=== PATIENT | female | born 1960 | race Caucasian/White ===

== ENCOUNTER 2016-03-30 12:17 | Emergency (ER) | payer MEDICAID ==
[2016-03-30 12:47] VITALS: BP 176/80
--- NOTE | 2016-03-30 13:36 | ERNOTE ---
Integumentary HPI - Narrative Date of Service: 03/30/16 - General Time Seen by Provider: 03/30/16 13:11 Source: patient Exam Limitations: no limitations - Immun/Allergies/Home Medications Immunizations: IMMUNIZATION HX Immunizations Up to Date Yes History of Influenza Vaccine Yes Hx Pneumococcal Vaccination No Allergies/Adverse Reactions: Allergies Allergy/AdvReac Type Severity Reaction Status Date / Time penicillin G Allergy Severe anaphlactic Verified 03/30/16 12:48 sulfacetamide Allergy Severe anaphylacti Verified 03/30/16 12:48 c Penicillins Allergy Verified 03/30/16 12:48 sulfamethoxazole Allergy Verified 03/30/16 12:48 [From Bactrim DS] trimethoprim Allergy Verified 03/30/16 12:48 [From Bactrim DS] chantrix Allergy Mild Itching Uncoded 03/23/16 13:42 Home Medications: HOME MEDICATIONS Cyanocobalamin (Vitamin B-12) [Vitamin B-12] 1,000 mcg IM DAILY 04/14/12 [Last Taken Unknown] Ferrous Sulfate [Iron] 325 mg PO BID 04/14/12 [Last Taken Unknown] Levothyroxine Sodium [Synthroid] 125 mcg PO DAILY 04/14/12 [Last Taken Unknown] Multivitamin [Multivitamins] 1 each PO DAILY 04/14/12 [Last Taken Unknown] Simvastatin 40 mg PO HS 04/14/12 [Last Taken Unknown] Furosemide [Lasix] 60 mg PO DAILY 11/28/12 [Last Taken Unknown] Acetaminophen [Tylenol Extra Strength] 500 mg PO PRN PRN 12/11/12 [Last Taken Unknown] Cholecalciferol (Vitamin D3) [Vitamin D-3] 1,000 unit PO BID 03/07/15 [Last Taken Unknown] Gabapentin 300 mg PO BID 03/07/15 [Last Taken Unknown] Ibuprofen [Motrin] 600 mg PO TID PRN #30 tab 03/07/15 [Last Taken Unknown] Spironolactone [Aldactone] 25 mg PO DAILY 03/07/15 [Last Taken Unknown] Gabapentin [Neurontin] 600 mg PO HS 11/05/15 [Last Taken Unknown] Meclizine HCl [Antivert] 25 mg PO TID PRN #20 tab 11/05/15 [Last Taken Unknown] Naproxen [Naprosyn] 500 mg PO BID PRN #60 tab 11/13/15 [Last Taken Unknown] Cephalexin Monohydrate [Keflex] 500 mg PO QID #40 cap 03/30/16 [Last Taken Unknown] - History of Present Illness Narrative: Pt. comes in with c/o R front leg redness and warmth that developed two days ago. Pt. also states taht her leg is swollen. Pt. has had a recent laceration to this leg that was treated with sutures. Pt. denies any drainage from the wound. Pt. denies any prehospital treatment, alleviating factors, or aggravating factors. Review of Systems - Review of Systems Constitutional: Present: no symptoms reported. Absent: recent illness, fever, chills, malaise EYE: Present: no symptoms reported ENT: Present: no symptoms reported Respiratory: Present: no symptoms reported. Absent: shortness of breath, cough , wheezing Cardiology: Present: no symptoms reported. Absent: chest pain, palpitations, edema Gastrointestinal/Abdominal: Present: no symptoms reported. Absent: nausea, vomiting, diarrhea Genitourinary: Present: no symptoms reported Musculoskeletal: Present: muscle pain - R jewell Skin: Present: other - laceration closed with sutures R jewell, warmtha dn redness 3 cm around this wound Neurological: Present: no symptoms reported. Absent: headache, dizziness/light- headedness, weakness, numbness, tingling All Other Systems: All systems neg except as marked - Patient's Past Medical History Patient History - Medical: Anxiety, Arthritis, Depression, Hypothyroidism, Obesity Patient History - Cardiac/Respiratory: Hypertension, Hyperlipidemia Patient History - Cancer: No Hx of Cancer Patient History - Surgical Procedures: Appendectomy, Cholecystectomy, Hysterectomy, Total Knee Replacement, T & A, Other LMP (females 10-50): Menopausal - Family History Mother Family History - Medical: Diabetes Type 2, Kidney stone Father Family History - Cardiac/Respiratory: Myocardial Infarction - Social History Living Situations: home Smoking Status: Current every day smoker Have you smoked in the past 12 months: Yes Do you dip or chew tobacco: No Alcohol Use: none Drug Use: none Physical Exam - Physical Exam General Appearance: Present: wd/wn, alert, no apparent distress Eye Exam: Normal inspection: bilateral, PERRL: bilateral, EOMI: bilateral Ears, Nose, Throat: Present: normal ENT inspection Neck: Present: normal inspection Respiratory: Present: no respiratory distress, normal breath sounds, no accessory muscle use, chest nontender, lungs clear Cardiovascular/Chest: Present: regular rate, rhythm, no murmur, normal peripheral pulses Back Exam: Present: normal inspection Extremity Exam: Present: normal range of motion, extremity edema - +2 surronding wound in R jewell, other - laceration closed with sutures R jewell, warmth and redness 3 cm around this wound. Absent: calf tenderness Neurological Exam: Present: alert, oriented, normal mood/affect, no motor/ sensory deficits, insurance account representative II-XII nml as tested, normal cerebellar test Skin Exam: Present: normal color, warm/dry, other - laceration closed with sutures R jewell, warmth and redness 3 cm around this wound. Absent: pallor, skin rash ED Progress - Results and Orders Patient's Lab Results:: I have reviewed the patient's lab results. - Vital Signs Patient's Vital Signs:: I have reviewed the patient's vital signs. Vital Signs: Vital Signs 03/30/16 12:42 Temperature 35.4 C L Pulse Rate 70 Respiratory 16 Rate Blood Pressure 176/80 O2 Sat by Pulse 100 Oximetry - Progress/Reassessment Chief Complaint: Cellulitis Progress:: Unchanged Departure Clinical Impression: Cellulitis Qualifiers: Site of cellulitis: extremity Site of cellulitis of extremity: lower extremity Laterality: right Qualified Code(s): L03.115 - Cellulitis of right lower limb - Departure Disposition: Home self-care Condition: Good Instructions: Cellulitis, Adult, [id number] Additional Instructions: Please return to Dr Rodriguez for wound check and suture removal in 5 days. Referrals: Shadi Moran MD [Primary Care Provider] - Prescriptions: Cephalexin Monohydrate [Keflex] 500 mg PO QID #40 cap
[2016-03-30 13:46] LABS: Hematocrit 41.8 % (37.0-47.0); Hemoglobin 13.2 gm/dL (12.5-16.0); Mean Cell Volume 85.8 fl (78-100); Mean Corpuscular Hemoglobin 27.1 pg (27-31); Mean Corpuscular Hgb Conc 31.6 g/dl (32-36); Mean Platelet Volume 9.3 fl (6.0-9.5); Neutrophil # 5.1 K/mm3 (1.3-6.0); Neutrophil % 68.7 % (42-75.0); Platelet Count 323 K/mm3 (150-450); Red Blood Count 4.87 M/mm3 (4.2-5.4); Red Cell Distribution Width 15.1 % (11.5-14.0); White Blood Count 7.5 K/mm3 (4.0-10.5)
[2016-03-30 14:04] LABS: Albumin * 3.4 gm/dl (3.4-5.0); Anion Gap 11.6 mmol/L (6.8-13.8); BUN/Creatinine Ratio 16.4 (9.0-21.6); Bilirubin, Total 0.4 mg/dL (0.0-1.1); Calcium * 8.8 mg/dL (7.9-10.9); Carbon Dioxide 28.5 mmol/L (24-32.6); Potassium 4.1 mmol/L (3.4-4.6); Total Protein 7.1 gm/dL (6.2-8.2)
== END 2016-03-30 14:58 | disposition home or self-care (01) ==
LOC: ER 12:17
DX: L03.115 Cellulitis of right lower limb (principal); F17.210 Nicotine dependence, cigarettes, uncomplicated; Z78.0 Asymptomatic menopausal state; Z90.710 Acquired absence of both cervix and uterus; Z96.659 Presence of unspecified artificial knee joint; Z90.49 Acquired absence of other specified parts of digestive tract; E03.9 Hypothyroidism, unspecified; I10 Essential (primary) hypertension

== ENCOUNTER 2016-04-13 09:14 | Emergency (ER) | payer MEDICAID ==
[2016-04-13 10:26] VITALS: BP 154/92
[2016-04-13 11:09] LABS: Hematocrit 42.1 % (37.0-47.0); Hemoglobin 13.5 gm/dL (12.5-16.0); Mean Cell Volume 84.7 fl (78-100); Mean Corpuscular Hemoglobin 27.2 pg (27-31); Mean Corpuscular Hgb Conc 32.1 g/dl (32-36); Mean Platelet Volume 9.2 fl (6.0-9.5); Neutrophil # 4.8 K/mm3 (1.3-6.0); Neutrophil % 64.7 % (42-75.0); Platelet Count 356 K/mm3 (150-450); Red Blood Count 4.97 M/mm3 (4.2-5.4); Red Cell Distribution Width 15.1 % (11.5-14.0); White Blood Count 7.4 K/mm3 (4.0-10.5)
[2016-04-13 11:25] LABS: Albumin * 3.3 gm/dl (3.4-5.0); Anion Gap 11.9 mmol/L (6.8-13.8); BUN/Creatinine Ratio 12.8 (9.0-21.6); Bilirubin, Total 0.3 mg/dL (0.0-1.1); Ca. Corrected For Albumin 9.3 mg/dL (8.4-10.2); Calcium * 9.1 mg/dL (7.9-10.9); Carbon Dioxide 27.8 mmol/L (24-32.6); Potassium 3.7 mmol/L (3.4-4.6); Total Protein 7.1 gm/dL (6.2-8.2)
--- NOTE | 2016-04-13 11:30 | ERNOTE ---
Medical Problem HPI - Narrative Date of Service: 04/13/16 - General Chief Complaint: Screening, Suture/Wound Time Seen by Provider: 04/13/16 10:39 Source: patient Exam Limitations: no limitations - Immun/Allergies/Home Medications Immunizations: IMMUNIZATION HX Immunizations Up to Date Yes History of Influenza Vaccine Yes Hx Pneumococcal Vaccination No Allergies/Adverse Reactions: Allergies penicillin G Allergy (Severe, Verified 03/30/16 12:48) anaphlactic sulfacetamide Allergy (Severe, Verified 03/30/16 12:48) anaphylactic Penicillins Allergy (Verified 03/30/16 12:48) sulfamethoxazole [From Bactrim DS] Allergy (Verified 03/30/16 12:48) trimethoprim [From Bactrim DS] Allergy (Verified 03/30/16 12:48) chantrix Allergy (Mild, Uncoded 03/23/16 13:42) Itching Home Medications: HOME MEDICATIONS Cyanocobalamin (Vitamin B-12) [Vitamin B-12] 1,000 mcg IM DAILY 04/14/12 [Last Taken 04/13/16 09:00] Ferrous Sulfate [Iron] 325 mg PO BID 04/14/12 [Last Taken 04/12/16 09:00] Levothyroxine Sodium [Synthroid] 125 mcg PO DAILY 04/14/12 [Last Taken 04/13/16 09:00] Multivitamin [Multivitamins] 1 each PO DAILY 04/14/12 [Last Taken 04/12/16 09:00 ] Simvastatin 40 mg PO HS 04/14/12 [Last Taken 04/12/16 21:00] Acetaminophen [Tylenol Extra Strength] 500 mg PO PRN PRN 12/11/12 [Last Taken 06:30] Cholecalciferol (Vitamin D3) [Vitamin D-3] 1,000 unit PO BID 03/07/15 [Last Taken 04/13/16 09:00] Gabapentin 300 mg PO DAILY 03/07/15 [Last Taken 04/13/16 09:00] Spironolactone [Aldactone] 25 mg PO DAILY 03/07/15 [Last Taken 04/13/16 08:00] Gabapentin [Neurontin] 600 mg PO HS 11/05/15 [Last Taken 04/12/16 21:00] Cephalexin Monohydrate [Keflex] 600 mg PO QID 04/13/16 [Last Taken 04/13/16 09: 00] Furosemide [Lasix] 100 mg PO DAILY 04/13/16 [Last Taken 04/12/16 09:00] Gabapentin 100 mg PO DAILY 04/13/16 [Last Taken 04/12/16 12:00] - History of Present History Narrative: Pt. comes in with c/o R leg pain and drainage. Pt. denies any SOB, CP, abd pain , but does state that she has weakness and nausea and diarrhea. Pt. has been on keflex and clindamycin since onset of previous cellulitis three weeks ago. Pt. was treated here by this provider, her PCP and the wound care clinic and pt. states that the drainage and wound has worsened. Review of Systems - Review of Systems Constitutional: Present: weakness, fatigue, malaise. Absent: fever, chills EYE: Present: no symptoms reported ENT: Present: no symptoms reported Respiratory: Present: no symptoms reported. Absent: shortness of breath, cough , wheezing Cardiology: Present: no symptoms reported Gastrointestinal/Abdominal: Present: no symptoms reported. Absent: nausea, vomiting, diarrhea, abdominal pain Genitourinary: Present: no symptoms reported Musculoskeletal: Present: no symptoms reported. Absent: back pain, joint pain Skin: Present: no symptoms reported Neurological: Present: no symptoms reported. Absent: headache, dizziness/light- headedness, numbness, tingling Endocrine: Present: no symptoms reported Hematologic/Lymphatic: Present: no symptoms reported Psych: Present: no symptoms reported All Other Systems: All systems neg except as marked - Patient's Past Medical History Patient History - Medical: Anxiety, Arthritis, Depression, Hypothyroidism, Obesity Patient History - Cardiac/Respiratory: Hypertension, Hyperlipidemia Patient History - Cancer: No Hx of Cancer Patient History - Surgical Procedures: Appendectomy, Cholecystectomy, Total Knee Replacement - Family History Mother Family History - Medical: Diabetes Type 2, Kidney stone Father Family History - Cardiac/Respiratory: Myocardial Infarction - Social History Living Situations: home Smoking Status: Current every day smoker Have you smoked in the past 12 months: Yes Do you dip or chew tobacco: No Smoking Start Date: 03/28/81 Alcohol Use: none Drug Use: none Physical Exam - Physical Exam General Appearance: Present: wd/wn, alert, no apparent distress Eye Exam: Normal inspection: bilateral, PERRL: bilateral, EOMI: bilateral Neck: Present: normal inspection, nontender. Absent: lymphadenopathy (R), lymphadenopathy (L) Respiratory: Present: no respiratory distress, normal breath sounds, no accessory muscle use, chest nontender, lungs clear Cardiovascular/Chest: Present: regular rate, rhythm, no murmur, normal peripheral pulses Gastrointestinal/Abdominal: Present: normal bowel sounds, nontender, nondistended, soft, no organomegaly Back Exam: Present: normal inspection, normal range of motion, no CVA tenderness , no vertebral tenderness Extremity Exam: Present: no edema, normal range of motion, other - ulcer mid jewell 3cm in diameter with 20 percent granulation tissue at base and green exudate from wound Neurological Exam: Present: alert, oriented, normal mood/affect, no motor/ sensory deficits, technician chemical cleaning II-XII nml as tested, normal cerebellar test Skin Exam: Present: normal color, warm/dry. Absent: pallor, skin rash ED Progress - Date and Time Seen: Date and Time: 04/13/16 11:29 Feel that pt. needs silver alginate dressing change and IV antibiotics for wound to heal 04/13/16 11:[address] Moran and we will have pt. go to [facility] for silver alginate dressing changes and follow up with [facility] as scheduled. - Vital Signs Patient's Vital Signs:: I have reviewed the patient's vital signs. Vital Signs: Vital Signs 04/13/16 10:12 Temperature 35.8 C L Pulse Rate 76 Respiratory 16 Rate Blood Pressure 154/92 O2 Sat by Pulse 100 Oximetry - Progress/Reassessment Chief Complaint: Screening, Suture/Wound Departure - Departure Clinical Impression: Ulcer Disposition: Home self-care Condition: Good Instructions: Wound Infection, [id number] Additional Instructions: Please follow up with Dr Moran in 1-2 weeks, Follow up with wound care clinic as scheduled and follow up in [facility] for daily dressing changes. Referrals: Shadi Moran MD [Primary Care Provider] -
== END 2016-04-13 12:27 | disposition home or self-care (01) ==
LOC: ER 09:14
DX: L97.819 Non-pressure chronic ulcer of other part of right lower leg with unspecified severity (principal); Z96.659 Presence of unspecified artificial knee joint; Z90.49 Acquired absence of other specified parts of digestive tract; I10 Essential (primary) hypertension; E03.9 Hypothyroidism, unspecified

== ENCOUNTER 2016-06-11 14:47 | Inpatient (IN) | payer MEDICAID ==
--- OUTSIDE RECORDS SUMMARY | 2016-06-11 14:55 | XMS REPORT | Continuity of Care Document ---
:1960 Author Organization [facility] ([facility]) Address [address] [place] [address] Phone [phone] Care Team Providers Name Role Phone Caitlin Castro Primary Care Provider [phone] Source Comments This disclosure is being made pursuant to the Care Everywhere program, applicable federal and state laws, and may not contain all informaitonavailable regarding this patient.[facility] ([facility]) Active Allergies and Adverse Reactions Allergen Noted Date Severity Reactions Comments Penicillins 07/01/2011 Angioedema Current Medications Prescription Sig. Disp. Refills Start Date End Date Status divalproex (DEPAKOTE) Take 250 mg by mouth 2 Active 250 mg EC tablet times daily. furosemide 40 mg Take 40 mg by mouth Active tablet daily. simvastatin 40 mg Take 40 mg by mouth Active tablet every evening. zolpiDEM 5 mg tablet Take by mouth at Active bedtime as needed. levothyroxine One daily 90 Tab 3 09/29/2012 Active (SYNTHROID) 125 mcg Indications: tablet HYPOTHYROIDISM ferrous sulfate 325 Take 325 mg by mouth Active mg (65 mg iron) daily. tablet Active Problems Problem Noted Date Right knee pain 02/13/2013 S/P total knee arthroplasty 02/13/2013 Abdominal pain, recurrent 09/29/2012 Overview: Right upper quadrant/lower chest. Point tenderness over the lower right lateral ribs Adrenal nodule 09/29/2012 Overview: Right 3.4 cm Hypothyroid 09/29/2012 Pedal edema 09/29/2012 Other physical therapy 07/02/2011 Difficulty in walking(719.7) 07/02/2011 Social History Tobacco Use Types Packs/Day Years Used Date Current Every Day Smoker Cigarettes 10 Tobacco Cessation:Ready to Quit: No; Counseling Given: Yes Comments: Last Filed Vital Signs Vital Sign Reading Time Taken Blood Pressure 149/84 01/08/2013 1:18 PM CDT Pulse 84 01/08/2013 1:18 PM CDT Temperature 36.6 C (97.9 F) 01/08/2013 1:18 PM CDT Respiratory Rate - - Height 1.626 m (5' 4") 01/08/2013 1:18 PM CDT Weight 89.359 kg (197 lb) 01/08/2013 1:18 PM CDT Body Mass Index 33.8 01/08/2013 1:18 PM CDT Oxygen Saturation - - Plan of Care Health Maintenance Due Date Last Done Comments HCV Screening 1960 Hepatitis B Vaccine (1 of 3 - Primary Series) 1960 Tdap Vaccine 1972 Lipid Disorder Screening 07/09/1979 MMR Vaccine 07/09/1979 Td Vaccine 07/09/1979 Pneumococcal Vaccine (1 of 1 - PPSV23) 1980 Cervical Cancer Screening 07/09/1991 Mammogram 2001 Colonoscopy 2011 Influenza Vaccine: Seasonal (#1) 10/27/2015 Results from Last 3 Months Not on file
--- NOTE | 2016-06-11 16:06 | HP ---
Chief Complaint - Chief Complaint Date of Service: 06/11/16 Time of Service: 15:57 Chief Complaint: Fever, chills and redness RT lower extremity for the last 24 hours. History of Present Illness: Patient is a 55-year-old WF with a H/O HLD, hypothyroidism, neuropathy, obesity [BMI 38.9], bilateral lower extremity edema who came in to the office because of redness RT lower extremity, fever and chills for the last 24 hours. She has a wound on the anterior aspect of her right lower leg for the last 2-3 months which has not completely healed in spite of being on 2 to 3 oral antibiotics in the past. She has also seen the wound clinic. She was admitted for further workup and IV antibiotics. - Patient's Past Medical History Additional info: PAST MEDICAL HISTORY: Hyperlipidemia, hypothyroidism 2004, neuropathy, obesity BMI 38.0, osteoarthritis[right TKA 2011], bilateral lower extremity edema, tobacco abuse, anxiety and depression, chronic low back pain, diverticulosis. Echo: 01/2016: Mild concentric LVH w/ EF 55-60 percent%. Mild to moderate MR. Trace TR with RVSP 36 mmHg. Abdominal ultrasound: 06/11: No evidence of portal vein thrombosis. Sleep studies: Patient did not show up for them. Patient History - Cancer: No Hx of Cancer Additional Info: PAST SURGICAL HISTORY: Appendectomy 1977, tubal ligation 1984, thyroidectomy 1994, lap. Cholecystectomy 1997, RT arthroscopic surgery [tibial tuberoplasty-2008, medial meniscectomy 2011]; TVH 2005, sympathetic nerve blocks to right lumbar plexus 2009, RT TKA 2011, RT de Quervian's surgery 2012. Patient History - Other: None - Family History Mother Family History - Medical: Kidney stone Family History - Cardiac/Respiratory: Hypertension, Hyperlipidemia - 82 Father Family History - Medical: - 52- [place], HTN. - Social History Living Situations: alone Abuse History: No History of abuse Psych History: No pertinent hx Smoking Status: Current every day smoker - 1PPD Have you smoked in the past 12 months: Yes Alcohol Use: none Drug Use: none - Immunizations Immunizations Up to Date: Yes Hx Pneumococcal Vaccination: No History of Influenza Vaccine: Yes Review Of Systems (GEN) - Review of Systems Generalized/Overall Review: Present: Chills, Fatigue, Weight gain Respiratory: Present: Cough Cardiac: Present: Edema. Absent: Chest Pain, Palpitations Neurological: Present: Anxiety, Depressed, Weakness Immunizations: IMMUNIZATION HX Immunizations Up to Date Yes History of Influenza Vaccine Yes Hx Pneumococcal Vaccination No Allergies/Adverse Reactions: Allergies Allergy/AdvReac Type Severity Reaction Status Date / Time penicillin G Allergy Severe anaphlactic Verified 04/15/16 08:25 sulfacetamide Allergy Severe anaphylacti Verified 04/15/16 08:25 c Penicillins Allergy Verified 04/15/16 08:25 sulfamethoxazole Allergy Verified 04/15/16 08:25 [From Bactrim DS] trimethoprim Allergy Verified 04/15/16 08:25 [From Bactrim DS] chantrix Allergy Mild Itching Uncoded 04/15/16 08:25 Home Medications: HOME MEDICATIONS Cyanocobalamin (Vitamin B-12) [Vitamin B-12] 1,000 mcg IM DAILY 04/14/12 [Last Taken 04/13/16 09:00] Levothyroxine Sodium [Synthroid] 125 mcg PO DAILY 04/14/12 [Last Taken 04/13/16 09:00] Simvastatin 40 mg PO HS 04/14/12 [Last Taken 04/12/16 21:00] Spironolactone [Aldactone] 25 mg PO DAILY 03/07/15 [Last Taken 04/13/16 08:00] Gabapentin [Neurontin] 600 mg PO HS 11/05/15 [Last Taken 04/12/16 21:00] Furosemide [Lasix] 120 mg PO DAILY 04/13/16 [Last Taken 04/12/16 09:00] Cholecalciferol (Vitamin D3) [Vitamin D3] 2,000 unit PO DAILY 06/11/16 [Last Taken Unknown] DULoxetine HCL [Cymbalta] 60 mg PO DAILY 06/11/16 [Last Taken Unknown] Ferrous Sulfate 325 mg PO DAILY 06/11/16 [Last Taken Unknown] Melatonin/Pyridoxine HCl (B6) [Melatonin 5 mg Tablet] 5 mg PO HS 06/11/16 [Last Taken Unknown] Metolazone [Zaroxolyn] 1.25 mg PO DAILY 06/11/16 [Last Taken Unknown] Naltrexone HCl [ReVia] 50 mg PO DAILY 06/11/16 [Last Taken Unknown] Exam - Exam Vital Signs: Vital Signs - Last Taken Temp 36.9 C 06/11/16 15:25 Pulse 107 H 06/11/16 15:25 Resp 20 06/11/16 15:25 BP 113/69 06/11/16 15:25 Pulse Ox 96 06/11/16 15:25 Constitutional: Present: No distress, Middle aged, Obese, Looks Older than stated age ENT Exam: Present: hearing grossly normal, moist mucous membranes Eye Exam: bilateral eye: PERRL, EOMI Neck: Present: normal inspection, trachea midline Respiratory: Present: decreased breath sounds. Absent: no accessory muscle use Cardiovascular/Chest: Present: tachycardia Peripheral Pulses: carotid (R): 2+, carotid (L): 2+ Abdomen: Present: Normal bowel sounds, soft, nondistended, obese /Rectal: Present: Exam deferred Extremity: Present: lower extremity edema - He 3+ with wound on anterior aspect RT lower leg Neurologic: Present: alert, oriented x 3, depressed affect Eye contact: Present: cooperative, good eye contact, normal speech Thoughts: Present: normal mood /affect - He is generally he Diagnostic Studies: Laboratory Tests 06/11/16 15:30 WBC 17.9 H Hgb 11.9 L Hct 37.2 Plt Count 295 06/11/16 15:30 Plasma Sodium 142 Potassium 3.6 Chloride 105 Carbon Dioxide 25.0 BUN 17 D Creatinine 0.97 Est GFR (Non-Af Amer) 64 D Random Glucose 101 Calcium Adj for Albumin 9.0 Total Bilirubin 0.7 AST 28 ALT 52 Alkaline Phosphatase 105 Total Protein 6.6 Albumin 2.8 L 06/11/16 15:30 Lactic Acid, Venous 1.8 C-Reactive Prot, Quant 13.6 H Procalcitonin 5.04 H Assessment/Plan - Narrative Narrative: 1. Cellulitis of RT lower extremity: patient will be started on cefoxitin 2 g IV Q8H and vancomycin 1gm IVQ12H . Pharmacy to adjust levels and follow BUN/CR. Add probiotics. Obtain x-ray of tib-fib of RT lower extremity; if negative consider CT/MRI. Elevate lower extremities for 6-8 inches at HS. 2. Bilateral lower extremity edema: Echo 01/2016 normal EF. Abdominal ultrasound 05/2016 no evidence of portal vein thrombosis. Patient did not show up for sleep studies when scheduled. Will need them on outpatient basis 3. Tobacco abuse: Start NicoDerm patch 21 mg a day 4. Hypothyroidism: Chronic and stable. Continue levothyroxine 0.125 mg PO daily. 5. Osteoarthritis: RT TKA 2011. 6. Obesity: BMI 38.0. Expected stay is [address] Beckwith to to take over this weekend.
[2016-06-11 16:07] LABS: Hematocrit 37.2 % (37.0-47.0); Hemoglobin 11.9 gm/dL (12.5-16.0); Mean Cell Volume 85.1 fl (78-100); Mean Corpuscular Hemoglobin 27.2 pg (27-31); Mean Platelet Volume 9.5 fl (6.0-9.5); Neutrophil # 15.9 K/mm3 (1.3-6.0); Neutrophil % 89.1 % (42-75.0); Platelet Count 295 K/mm3 (150-450); Red Blood Count 4.37 M/mm3 (4.2-5.4); Red Cell Distribution Width 14.8 % (11.5-14.0); White Blood Count 17.9 K/mm3 (4.0-10.5)
[2016-06-11 16:24] LABS: Albumin * 2.8 gm/dl (3.4-5.0); Anion Gap 15.6 mmol/L (6.8-13.8); BUN/Creatinine Ratio 17.5 (9.0-21.6); Bilirubin, Total 0.7 mg/dL (0.0-1.1); Calcium * 8.4 mg/dL (7.9-10.9); Potassium 3.6 mmol/L (3.4-4.6); Total Protein 6.6 gm/dL (6.2-8.2)
[2016-06-11 16:25] LABS: CRP 13.6 mg/dL (0.0-0.9)
[2016-06-11] MEDS: CEFOXITIN SODIUM 2 GM in DEXTROSE 5 % IN WATER 100 ML IV SCH ×4 (16:54→21:03)
[2016-06-11] MEDS: ENOXAPARIN SODIUM 40 MG/0.4 ML SYRG SC SCH (16:57)
[2016-06-11] MEDS: NICOTINE 21 MG PATC TD SCH (16:57)
[2016-06-11] MEDS: CHOLECALCIFEROL 5,000 UNIT TABLET PO SCH (16:58)
[2016-06-11] MEDS: VANCOMYCIN HCL 1 GM in DEXTROSE 5 % IN WATER 250 ML IV SCH ×2 (17:30)
[2016-06-11] MEDS: Melatonin/Pyridoxine Hcl (B6) [Melatonin 5 Mg Tablet] PO SCH (20:49)
[2016-06-11] MEDS: SIMVASTATIN 40 MG TABLET PO SCH (20:49)
[2016-06-11] MEDS: ACETAMINOPHEN 500 MG TABLET PO PRN (21:03)
[2016-06-12] MEDS: CEFOXITIN SODIUM 2 GM in DEXTROSE 5 % IN WATER 100 ML IV SCH ×8 (03:23→21:00)
[2016-06-12] MEDS ORDERED: HYDROcodone/ACETAMINOPHEN 1 EACH TABLET PO PRN (03:33)
[2016-06-12] MEDS: VANCOMYCIN HCL 1 GM in DEXTROSE 5 % IN WATER 250 ML IV SCH ×4 (04:00→15:45)
[2016-06-12] MEDS: ONDANSETRON HCL/PF 2 MG/ML VIAL IV PRN (05:47)
[2016-06-12 05:51] LABS: Hematocrit 33.4 % (37.0-47.0); Hemoglobin 10.9 gm/dL (12.5-16.0); Mean Cell Volume 83.3 fl (78-100); Mean Corpuscular Hemoglobin 27.2 pg (27-31); Mean Corpuscular Hgb Conc 32.6 g/dl (32-36); Mean Platelet Volume 10.3 fl (6.0-9.5); Neutrophil # 12.1 K/mm3 (1.3-6.0); Neutrophil % 88.6 % (42-75.0); Platelet Count 280 K/mm3 (150-450); Red Blood Count 4.01 M/mm3 (4.2-5.4); Red Cell Distribution Width 14.9 % (11.5-14.0); White Blood Count 13.6 K/mm3 (4.0-10.5)
[2016-06-12] MEDS: LEVOTHYROXINE SODIUM 125 MCG TABLET PO SCH (07:46)
[2016-06-12] MEDS: ACETAMINOPHEN 500 MG TABLET PO PRN ×2 (08:03→20:57)
[2016-06-12] MEDS: DULoxetine HCL 30 MG CAPSULE.SA PO SCH (08:03)
[2016-06-12] MEDS: NICOTINE 21 MG PATC TD SCH (15:08)
[2016-06-12] MEDS: ENOXAPARIN SODIUM 40 MG/0.4 ML SYRG SC SCH (15:08)
[2016-06-12] MEDS: CHOLECALCIFEROL 5,000 UNIT TABLET PO SCH (16:48)
[2016-06-12] MEDS: SIMVASTATIN 40 MG TABLET PO SCH (20:57)
[2016-06-12] MEDS: Melatonin/Pyridoxine Hcl (B6) [Melatonin 5 Mg Tablet] PO SCH (20:57)
[2016-06-13] MEDS: CEFOXITIN SODIUM 2 GM in DEXTROSE 5 % IN WATER 100 ML IV SCH ×8 (03:28→21:01)
[2016-06-13] MEDS ORDERED: VANCOMYCIN HCL LEVEL XX ONE (04:00)
[2016-06-13 04:30] LABS: Hematocrit 31.7 % (37.0-47.0); Hemoglobin 10.2 gm/dL (12.5-16.0); Mean Cell Volume 84.1 fl (78-100); Mean Corpuscular Hemoglobin 27.1 pg (27-31); Mean Corpuscular Hgb Conc 32.2 g/dl (32-36); Mean Platelet Volume 9.9 fl (6.0-9.5); Neutrophil # 4.9 K/mm3 (1.3-6.0); Neutrophil % 74.6 % (42-75.0); Platelet Count 223 K/mm3 (150-450); Red Blood Count 3.77 M/mm3 (4.2-5.4); Red Cell Distribution Width 14.9 % (11.5-14.0); White Blood Count 6.6 K/mm3 (4.0-10.5)
[2016-06-13] MEDS: VANCOMYCIN HCL 1 GM in DEXTROSE 5 % IN WATER 250 ML IV SCH ×2 (05:13)
[2016-06-13] MEDS: LEVOTHYROXINE SODIUM 125 MCG TABLET PO SCH (07:40)
[2016-06-13] MEDS: DULoxetine HCL 30 MG CAPSULE.SA PO SCH (09:15)
[2016-06-13] MEDS: ONDANSETRON HCL/PF 2 MG/ML VIAL IV PRN (12:33)
--- NOTE | 2016-06-13 13:57 | CONS ---
HPI - General Date of Service: 06/13/16 Narrative: Ask to see this 55 yr old white female who presented with cellulitis of the RLE. An ultrasound has been performed showing a SQ fluid collection measuring 2.2x 0.4 cm. I have been consulted to see if this needs to be drained. She has been on mefoxin and vancomycin. The vancomycin has been discontinued. - History of Present Illness Allergies/Adverse Reactions: Allergies penicillin G Allergy (Severe, Verified 04/15/16 08:25) anaphlactic sulfacetamide Allergy (Severe, Verified 04/15/16 08:25) anaphylactic Penicillins Allergy (Verified 04/15/16 08:25) sulfamethoxazole [From Bactrim DS] Allergy (Verified 04/15/16 08:25) trimethoprim [From Bactrim DS] Allergy (Verified 04/15/16 08:25) chantrix Allergy (Mild, Uncoded 04/15/16 08:25) Itching Home Medications: Home Medications Medication Instructions Recorded Last Taken Cyanocobalamin (Vitamin B-12) 1,000 mcg IM DAILY 04/14/12 04/13/16 09:00 [Vitamin B-12] Levothyroxine Sodium [Synthroid] 125 mcg PO DAILY 04/14/12 04/13/16 09:00 Simvastatin 40 mg PO HS 04/14/12 04/12/16 21:00 Spironolactone [Aldactone] 25 mg PO DAILY 03/07/15 04/13/16 08:00 Gabapentin [Neurontin] 600 mg PO HS 11/05/15 04/12/16 21:00 Furosemide [Lasix] 120 mg PO DAILY 04/13/16 04/12/16 09:00 Cholecalciferol (Vitamin D3) 2,000 unit PO DAILY 06/11/16 Unknown [Vitamin D3] DULoxetine HCL [Cymbalta] 60 mg PO DAILY 06/11/16 Unknown Ferrous Sulfate 325 mg PO DAILY 06/11/16 Unknown Melatonin/Pyridoxine HCl (B6) 5 mg PO HS 06/11/16 Unknown [Melatonin 5 mg Tablet] Metolazone [Zaroxolyn] 1.25 mg PO DAILY 06/11/16 Unknown Naltrexone HCl [ReVia] 50 mg PO DAILY 06/11/16 Unknown - Patient's Past Medical History Patient History - Medical: Anxiety, Arthritis, Depression, Hypothyroidism, Obesity Patient History - Cardiac/Respiratory: Hyperlipidemia, Pneumonia Patient History - Cancer: No Hx of Cancer Patient History - Surgical Procedures: Appendectomy, Cholecystectomy, Colonoscopy, Hysterectomy, Total Knee Replacement Patient History - Other: None - Family History Mother Family History - Medical: Kidney stone Family History - Cardiac/Respiratory: Hypertension, Hyperlipidemia - 82 Family History - Cancer: No pertinent family hx Father Family History - Medical: - 52- [place], HTN. Family History - Cardiac/Respiratory: Myocardial Infarction - Social History Living Situations: alone Abuse History: No History of abuse Psych History: No pertinent hx Smoking Status: Current every day smoker Have you smoked in the past 12 months: Yes Alcohol Use: none Drug Use: none - Immunizations Immunizations Up to Date: Yes Hx Pneumococcal Vaccination: No History of Influenza Vaccine: Yes Procedures ANESTH INJECT SYMP NERVE (10/23/09) APPLICATION OF SPLINT (05/06/12) BONE GRAFT-TIBIA/FIBULA (09/14/10) COLONOSCOPY (04/17/12) DPT ADMINISTRATION (10/04/11) EXC LES SOFT TISSUE NEC (10/22/10) EXCIS KNEE SEMILUN CARTL (04/22/11) EXCISE BONE FOR GFT NEC (09/14/10) EXPLOR TEND SHEATH-HAND (04/20/12) INJECT STEROID (12/05/14) INJECTION INTO JOINT (12/05/14) KNEE ARTHROSCOPY (04/22/11) KNEE STRUCTURE DIVISION (12/17/08) KNEE SYNOVECTOMY (04/22/11) LOC EXC LES TIBIA/FIBULA (09/14/10) OSTEOCLASIS-FEMUR (12/17/08) OTHER REPAIR AND PLASTIC OPER OF TIBIA/FIBULA (12/17/08) OTHER REPAIR OF KNEE (08/13/08) REMOV INT FIX-TIB/FIBULA (08/06/10) REPAIR R LOW LEG SUBCU/FASCIA, OPEN APPROACH (03/23/16) SPINAL TAP (07/29/09) SYMPATH NERVE INJECT NEC (10/23/09) TIBIA & FIBULA BIOPSY (08/06/10) TOTAL KNEE REPLACEMENT (12/06/11) Medications - Medications Current Medications: Current Medications Acetaminophen (Tylenol) 500 mg PO Q6H PRN PRN Reason: Fever Stop: 07/11/16 20:34 Last Admin: 06/12/16 20:57 Dose: 500 mg Acetaminophen/Hydrocodone Bitart ([place] 5-325) 1 each PO Q6H PRN PRN Reason: Pain Stop: 07/12/16 03:34 Last Admin: 06/12/16 03:53 Dose: 1 each Cholecalciferol (Vitamin D) 5,000 unit PO DAILY@1730 [facility] Stop: 07/11/16 17:31 Last Admin: 06/12/16 16:48 Dose: 5,000 unit Duloxetine HCl (Cymbalta) 60 mg PO DAILY [facility] Stop: 07/12/16 09:01 Last Admin: 06/13/16 09:15 Dose: 60 mg Enoxaparin Sodium (Lovenox) 40 mg SC Q24H [facility] Stop: 07/11/16 15:46 Last Admin: 06/12/16 15:08 Dose: 40 mg Cefoxitin Sodium 2 gm/ (Dextrose/Water) 100 mls @ 200 mls/hr IV Q6H LYLA PRN Reason: Protocol Stop: 07/11/16 16:01 Last Admin: 06/13/16 09:15 Dose: 200 mls/hr Levothyroxine Sodium (Synthroid) 125 mcg PO DAILY@0700 [facility] Stop: 07/12/16 07:01 Last Admin: 06/13/16 07:40 Dose: 125 mcg Nicotine (Nicoderm) 21 mg TD Q24H [facility] Stop: 07/11/16 15:46 Last Admin: 06/12/16 15:08 Dose: 21 mg Melatonin/Pyridoxine Hcl (B6) [Melatonin 5 Mg Tablet] 5 mg PO HS [facility] Stop: 07/11/16 21:01 Last Admin: 06/12/16 20:57 Dose: Not Given Ondansetron HCl (Zofran) 4 mg IV Q6H PRN PRN Reason: Nausea And Vomiting Stop: 07/12/16 05:40 Last Admin: 06/13/16 12:33 Dose: 4 mg Simvastatin (Zocor) 40 mg PO HS [facility] Stop: 07/11/16 21:01 Last Admin: 06/12/16 20:57 Dose: 40 mg Physical Examination - Exam Vital Signs: Vital Signs - Last Taken Temp 36.9 C 06/13/16 10:23 Pulse 70 06/13/16 10:23 Resp 20 06/13/16 10:23 BP 130/72 06/13/16 10:23 Pulse Ox 98 06/13/16 10:23 O2 Oxygen Delivery Method Room Air Constitutional: Present: Alert, Oriented x3, Cooperative, No distress ENT Exam: Present: normal ENT inspection Neck: Present: normal inspection Respiratory: Present: no respiratory distress Cardiovascular/Chest: Present: normal peripheral pulses, edema Extremity: Present: inflammation, lower extremity edema, leg pain, pedal edema, other - RLE erythema up to tibial tubercle and down to ankle. No Sharpie delineation montgomery noted. Right TKA scar is slightly erythematous. Mepilex with border over small pre-tibial ulcer that is nearly healed. No fluctuance or pointing lesion is seen or palpated. Skin Exam: Present: other - see above Appearance: Present: appropriate appearance, appropriate insight, no memory impairment - Results and Findings: Lab/Microbiology results last 24 hrs: Abnormal/Pending Laboratory Last 24 HRS 06/13/16 06/13/16 04:05 04:05 RBC 3.77 L Hgb 10.2 L Hct 31.7 L RDW 14.9 H MPV 9.9 H Immature Gran % (Auto) 0.60 H Immature Gran # (Auto) 0.04 H Lymphocytes % 18.9 L Lymphocytes # 1.3 L Vancomycin Trough 6.4 L Culture 06/11/16 15:45 Blood Culture - Preliminary Blood NO GROWTH 24 HOURS 06/11/16 15:30 Blood Culture - Preliminary Blood NO GROWTH 24 HOURS - Assessments/Findings (1) Cellulitis Diagnosis(s): A: Cellulitis RLE Chronic lymphedema Venous hypertension Ulcer right jewell Tobacco abuse R: Do not think an I&D is needed at this point. WBC is trending downward. Will add doxycycline as a matrix metalloproteinase modifier. 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 This is especially important since she has a prosthetic joint in near proximity to this process. In regard to her chronic lymphedema, compression therapy is contraindicated in the face of acute infection but will be required once the infection is controlled. I think compression in the 20-30mmHg range should be sufficient. [place] from [employer] could be a nice bridge to her chronic compression therapy. Smoking cessation should be demanded including nicotine products ( vasoconstriction and relative wound ischemia). I reviewed the gravity of such infections in a limb with prosthesis, including the loss of prosthetic, loss of joint, and loss of limb. Thank you kindly for this consult. Problem: Acute Qualifiers: Site of cellulitis: extremity Site of cellulitis of extremity: lower extremity Laterality: right Qualified Code(s): L03.115 - Cellulitis of right lower limb
[2016-06-13] MEDS: DOXYCYCLINE HYCLATE 100 MG TABLET PO SCH ×2 (14:23→21:00)
[2016-06-13] MEDS: ENOXAPARIN SODIUM 40 MG/0.4 ML SYRG SC SCH (15:46)
[2016-06-13] MEDS: NICOTINE 21 MG PATC TD SCH (15:46)
[2016-06-13] MEDS: VANCOMYCIN HCL 1.25 GM in DEXTROSE 5 % IN WATER 250 ML IV SCH ×2 (17:08)
[2016-06-13] MEDS: CHOLECALCIFEROL 5,000 UNIT TABLET PO SCH (17:17)
[2016-06-13] MEDS: Melatonin/Pyridoxine Hcl (B6) [Melatonin 5 Mg Tablet] PO SCH (21:00)
[2016-06-13] MEDS: SIMVASTATIN 40 MG TABLET PO SCH (21:00)
[2016-06-13] MEDS: LACTOBACILLUS ACIDOPHILUS 100 CAP BTL PO SCH (21:00)
[2016-06-14] MEDS: CEFOXITIN SODIUM 2 GM in DEXTROSE 5 % IN WATER 100 ML IV SCH ×8 (03:43→21:15)
[2016-06-14] MEDS: VANCOMYCIN HCL 1.25 GM in DEXTROSE 5 % IN WATER 250 ML IV SCH ×4 (04:21→16:41)
[2016-06-14 05:58] LABS: Hematocrit 32.4 % (37.0-47.0); Hemoglobin 10.5 gm/dL (12.5-16.0); Mean Cell Volume 83.1 fl (78-100); Mean Corpuscular Hemoglobin 26.9 pg (27-31); Mean Corpuscular Hgb Conc 32.4 g/dl (32-36); Mean Platelet Volume 10.4 fl (6.0-9.5); Neutrophil # 4.1 K/mm3 (1.3-6.0); Neutrophil % 67.7 % (42-75.0); Platelet Count 277 K/mm3 (150-450); Red Cell Distribution Width 14.9 % (11.5-14.0)
[2016-06-14] MEDS: LEVOTHYROXINE SODIUM 125 MCG TABLET PO SCH (06:41)
[2016-06-14] MEDS: LACTOBACILLUS ACIDOPHILUS 100 CAP BTL PO SCH ×2 (08:35→21:04)
[2016-06-14] MEDS: DOXYCYCLINE HYCLATE 100 MG TABLET PO SCH (08:35)
[2016-06-14] MEDS: DULoxetine HCL 30 MG CAPSULE.SA PO SCH (08:36)
--- NOTE | 2016-06-14 09:20 | PN ---
Subjective - Date and Time Seen Date: 06/12/16 Time: 10:15 Subjective Narrative: Patient seen and examined at bedside. No acute issues overnight. Patient states that she is feeling betting since admission but is still having fairly significant right leg pain, especially with ambulation. Objective - Review of Systems Generalized/Overall Review: Reports: Fatigue EENTM: Reports: No Symptoms Reported Respiratory: Reports: No Symptoms Reported Cardiac: Reports: Edema Abdominal: Reports: No Symptoms Reported Genitourinary Symptoms: Reports: No Symptoms Reported Musculoskeletal Complaints: Reports: Other - Right leg pain Neurological: Reports: No Symptoms Reported Skin: Reports: Other - Wound on right leg Endocrine: Reports: No Symptoms Reported - Vitals Vitals: Last Vital Signs Temp 36.6 C 06/14/16 08:27 Pulse 57 L 06/14/16 08:27 Resp 16 06/14/16 08:27 BP 128/59 06/14/16 08:27 Pulse Ox 95 06/14/16 08:27 - Abnormal Lab Findings Abnormal Lab Findings: Abnormal Lab Results 06/14/16 Range/Units 04:50 RBC 3.90 L (4.2-5.4) M/mm3 Hgb 10.5 L (12.5-16.0) gm/dL Hct 32.4 L (37.0-47.0) % MCH 26.9 L (27-31) pg RDW 14.9 H (11.5-14.0) % MPV 10.4 H (6.0-9.5) fl Immature Gran % (Auto) 0.80 H (0.001-0.429) % Immature Gran # (Auto) 0.05 H (0.000-0.0310) K/mm3 - Exam Constitutional: Present: Alert, Oriented x3, Cooperative, Middle aged, Morbidly obese ENT Exam: Present: moist mucous membranes Respiratory: Present: no respiratory distress, no accessory muscle use, expiration (prolonged) - Coarse breath sounds bilaterally without crackles, rhonchi or wheezes noted Cardiovascular/Chest: Present: regular rate, rhythm, edema Abdomen: Present: soft, nontender, nondistended, hypoactive Extremity: Present: other - 2+ edema in bilateral LEs right>left Skin Exam: Present: other - 2+ edema in bilateral LEs right>left, right anterior jewell with wound and surrounding erythema Neurologic: Present: no motor/sensory deficits, alert, oriented x 3 Eye contact: Present: cooperative Thoughts: Present: normal thought pattern, no apparent hallucination Assessment/Plan Plan Narrative: Continue current IV antibiotics. LE ultrasound ordered to look for possible underlying abscess given her history of this chronic non-healing wound since January 2016. Further recommendations pending US results. - Problems/Diagnosis (1) Cellulitis Problem: Acute Qualifiers: Site of cellulitis: extremity Site of cellulitis of extremity: lower extremity Laterality: right Qualified Code(s): L03.115 - Cellulitis of right lower limb
--- NOTE | 2016-06-14 09:29 | PN ---
Subjective - Date and Time Seen Date: 06/13/16 Time: 08:50 Subjective Narrative: Patient seen and examined at bedside. No acute issues overnight. Patient states that she continues to feel better each day. She still complains of having fairly significant right leg pain, especially with ambulation. Objective - Review of Systems Generalized/Overall Review: Reports: Fatigue EENTM: Reports: No Symptoms Reported Respiratory: Reports: No Symptoms Reported Cardiac: Reports: Edema Abdominal: Reports: No Symptoms Reported Genitourinary Symptoms: Reports: No Symptoms Reported Musculoskeletal Complaints: Reports: Other - Right leg pain Neurological: Reports: No Symptoms Reported Skin: Reports: Other - Right leg wound Endocrine: Reports: No Symptoms Reported - Vitals Vitals: Last Vital Signs Temp 36.6 C 06/14/16 08:27 Pulse 57 L 06/14/16 08:27 Resp 16 06/14/16 08:27 BP 128/59 06/14/16 08:27 Pulse Ox 95 06/14/16 08:27 - Abnormal Lab Findings Abnormal Lab Findings: Abnormal Lab Results 06/14/16 Range/Units 04:50 RBC 3.90 L (4.2-5.4) M/mm3 Hgb 10.5 L (12.5-16.0) gm/dL Hct 32.4 L (37.0-47.0) % MCH 26.9 L (27-31) pg RDW 14.9 H (11.5-14.0) % MPV 10.4 H (6.0-9.5) fl Immature Gran % (Auto) 0.80 H (0.001-0.429) % Immature Gran # (Auto) 0.05 H (0.000-0.0310) K/mm3 - Exam Constitutional: Present: Alert, Oriented x3, Cooperative, Middle aged, Morbidly obese ENT Exam: Present: moist mucous membranes Respiratory: Present: no respiratory distress, no accessory muscle use, other - Coarse breath sounds bilaterally without crackles, rhonchi or wheezes noted Cardiovascular/Chest: Present: regular rate, rhythm, edema - 2+ edema in bilateral LEs Abdomen: Present: soft, nontender, nondistended, hypoactive Extremity: Present: other - 2+ edema in bilateral LEs right>left, right anterior jewell wound with surrounding erythema (improved since admission) Skin Exam: Present: other - right anterior jewell wound with surrounding erythema (improved since admission) Neurologic: Present: no motor/sensory deficits, alert, oriented x 3 Eye contact: Present: cooperative Thoughts: Present: normal thought pattern, no apparent hallucination Assessment/Plan Plan Narrative: US showed a small fluid collection in the subcutaneous tissues. General surgeon , Dr. Levy, consulted. Await input and recommendations. Continue current cares including IV antibiotics. - Problems/Diagnosis (1) Cellulitis Problem: Acute Qualifiers: Site of cellulitis: extremity Site of cellulitis of extremity: lower extremity Laterality: right Qualified Code(s): L03.115 - Cellulitis of right lower limb
--- NOTE | 2016-06-14 13:27 | PN ---
Subjective - Date and Time Seen Date: 06/14/16 Time: 13:24 Subjective Narrative: FU Cellulitis RLE Pt just returned from MRI. Those results are pending. Pt has no new c/o. Objective - Review of Systems Misc: All systems neg except as marked - Vitals Vitals: Last Vital Signs Temp 36.6 C 06/14/16 09:00 Pulse 57 L 06/14/16 09:00 Resp 16 06/14/16 09:00 BP 128/59 06/14/16 09:00 Pulse Ox 95 06/14/16 09:00 - Abnormal Lab Findings Abnormal Lab Findings: Abnormal Lab Results 06/14/16 Range/Units 04:50 RBC 3.90 L (4.2-5.4) M/mm3 Hgb 10.5 L (12.5-16.0) gm/dL Hct 32.4 L (37.0-47.0) % MCH 26.9 L (27-31) pg RDW 14.9 H (11.5-14.0) % MPV 10.4 H (6.0-9.5) fl Immature Gran % (Auto) 0.80 H (0.001-0.429) % Immature Gran # (Auto) 0.05 H (0.000-0.0310) K/mm3 - Exam Exam Narrative: RLE: Erythema appears slightly improved. Edema RLE>LLE. Constitutional: Present: Alert, Oriented x3, Cooperative, No distress Assessment/Plan Plan Narrative: A: Cellulitis RLE P: Clinically slightly improved. No fever and WBC normalized. Non-surgical RLE. Will sign off for now and be available PRN. Thank you for the kind consultation. - Problems/Diagnosis (1) Cellulitis Problem: Acute Qualifiers: Site of cellulitis: extremity Site of cellulitis of extremity: lower extremity Laterality: right Qualified Code(s): L03.115 - Cellulitis of right lower limb
[2016-06-14] MEDS: ENOXAPARIN SODIUM 40 MG/0.4 ML SYRG SC SCH (16:08)
[2016-06-14] MEDS: NICOTINE 21 MG PATC TD SCH (16:08)
--- NOTE | 2016-06-14 16:42 | PN ---
Subjective - Date and Time Seen Date: 06/14/16 Time: 16:41 Subjective Narrative: patient anxious to go home - not sure if will restart smoking again. Keeping RT leg elevated at night , becoming more edematous. Objective - Review of Systems Generalized/Overall Review: Reports: Fatigue. Denies: Chills, Fever Respiratory: Denies: Cough, Shortness of Breath Cardiac: Reports: Edema. Denies: Chest Pain - Vitals Vitals: Vital Signs Temp 36.6 C 06/14/16 15:58 Pulse 63 06/14/16 15:58 Resp 20 06/14/16 15:58 BP 121/86 06/14/16 15:58 Pulse Ox 96 06/14/16 15:58 - Abnormal Lab Findings Abnormal Lab Findings: Laboratory Tests 06/14/16 04:50 WBC 6.0 Hgb 10.5 L Hct 32.4 L Plt Count 277 06/14/16 04:50 Iron 43 TIBC 193 L Transferrin % Sat 22 - Exam Constitutional: Present: Middle aged, Obese, Looks Older than stated age - in NAD. ENT Exam: Present: hearing grossly normal, moist mucous membranes Respiratory: Present: lungs clear, normal breath sounds, no accessory muscle use Cardiovascular/Chest: Present: regular rate, rhythm. Absent: tachycardia Abdomen: Present: Normal bowel sounds, soft, nontender, obese Extremity: Present: lower extremity edema - 3+ RT> 1+ LT; RT leg more brawny looking, not as tender. pedal pulses not palpable due to edema. Neurologic: Present: alert, oriented x 3 Eye contact: Present: cooperative, good eye contact, normal speech Assessment/Plan Plan Narrative: 1. Cellulitis of RT lower extremity: Day #4 : cefoxitin 2 g IV Q8H and vancomycin 1gm IV Q12H - Pharmacy following BUN/CR and levels On. probiotics. Elevate lower extremities for 6 -8 inches at HS. Xray of RT Tib/fib WNL. Surgical consult appreciated. MRI of RT tib/fib ordered for 06/14/2016. Obtain consult with ID as outpatient. 2. Bilateral lower extremity edema: Echo 01/2016 normal EF. Abdominal ultrasound 05/2016 no evidence of portal vein thrombosis. sleep studies will be scheduled as outpatient basis. 3. Tobacco abuse: ON NicoDerm patch 21 mg a day 4. Hypothyroidism: Chronic and stable. Continue levothyroxine 0.125 mg PO daily. 5. Osteoarthritis: RT TKA 2011. 6. Obesity: BMI 38.0.
[2016-06-14] MEDS: CHOLECALCIFEROL 5,000 UNIT TABLET PO SCH (16:45)
[2016-06-14] MEDS: Melatonin/Pyridoxine Hcl (B6) [Melatonin 5 Mg Tablet] PO SCH (21:03)
[2016-06-14] MEDS: SIMVASTATIN 40 MG TABLET PO SCH (21:04)
[2016-06-15] MEDS: CEFOXITIN SODIUM 2 GM in DEXTROSE 5 % IN WATER 100 ML IV SCH ×6 (04:32→15:04)
[2016-06-15] MEDS: VANCOMYCIN HCL 1.25 GM in DEXTROSE 5 % IN WATER 250 ML IV SCH ×4 (05:16→16:40)
[2016-06-15 06:10] LABS: Hematocrit 33.4 % (37.0-47.0); Hemoglobin 10.8 gm/dL (12.5-16.0); Mean Cell Volume 83.7 fl (78-100); Mean Corpuscular Hemoglobin 27.1 pg (27-31); Mean Corpuscular Hgb Conc 32.3 g/dl (32-36); Mean Platelet Volume 9.9 fl (6.0-9.5); Neutrophil # 3.8 K/mm3 (1.3-6.0); Neutrophil % 67.3 % (42-75.0); Platelet Count 303 K/mm3 (150-450); Red Blood Count 3.99 M/mm3 (4.2-5.4); Red Cell Distribution Width 14.9 % (11.5-14.0); White Blood Count 5.6 K/mm3 (4.0-10.5)
[2016-06-15] MEDS: LEVOTHYROXINE SODIUM 125 MCG TABLET PO SCH (06:30)
[2016-06-15] MEDS: ACETAMINOPHEN 500 MG TABLET PO PRN (06:32)
[2016-06-15] MEDS: DULoxetine HCL 30 MG CAPSULE.SA PO SCH (08:39)
[2016-06-15] MEDS: LACTOBACILLUS ACIDOPHILUS 100 CAP BTL PO SCH (08:39)
[2016-06-15 10:27] LABS: Iron 43 mcg/dL (35-120); Transferrin Sat. (% Sat.) 22 % (15-55)
--- NOTE | 2016-06-15 11:47 | CONS ---
[facility] - General Date of Service: 06/15/16 Narrative: Trang is a 55 yo F admitted for cellulitis of her R lower leg and a small non- healing ulcer over the distal anterior leg. Of note, she has a history of R total knee replacement in 2011. She has had this ulcer on the leg for several months and is followed in our wound clinic. An MRI was obtained, which was read out as consistent with cellulitis with a concern for a developing abscess superficially in the soft tissues. According to the patient, she feels much better since being placed on antibiotics. She says the pain, swelling, and erythema have decreased significantly. - History of Present Illness Allergies/Adverse Reactions: Allergies penicillin G Allergy (Severe, Verified 04/15/16 08:25) anaphlactic sulfacetamide Allergy (Severe, Verified 04/15/16 08:25) anaphylactic Penicillins Allergy (Verified 04/15/16 08:25) sulfamethoxazole [From Bactrim DS] Allergy (Verified 04/15/16 08:25) trimethoprim [From Bactrim DS] Allergy (Verified 04/15/16 08:25) chantrix Allergy (Mild, Uncoded 04/15/16 08:25) Itching Home Medications: Home Medications Medication Instructions Recorded Last Taken Cyanocobalamin (Vitamin B-12) 1,000 mcg IM DAILY 04/14/12 04/13/16 09:00 [Vitamin B-12] Levothyroxine Sodium [Synthroid] 125 mcg PO DAILY 04/14/12 04/13/16 09:00 Simvastatin 40 mg PO HS 04/14/12 04/12/16 21:00 Spironolactone [Aldactone] 25 mg PO DAILY 03/07/15 04/13/16 08:00 Gabapentin [Neurontin] 600 mg PO HS 11/05/15 04/12/16 21:00 Furosemide [Lasix] 120 mg PO DAILY 04/13/16 04/12/16 09:00 Cholecalciferol (Vitamin D3) 2,000 unit PO DAILY 06/11/16 Unknown [Vitamin D3] DULoxetine HCL [Cymbalta] 60 mg PO DAILY 06/11/16 Unknown Ferrous Sulfate 325 mg PO DAILY 06/11/16 Unknown Melatonin/Pyridoxine HCl (B6) 5 mg PO HS 06/11/16 Unknown [Melatonin 5 mg Tablet] Metolazone [Zaroxolyn] 1.25 mg PO DAILY 06/11/16 Unknown Naltrexone HCl [ReVia] 50 mg PO DAILY 06/11/16 Unknown - Patient's Past Medical History Patient History - Medical: Anxiety, Arthritis, Depression, Hypothyroidism, Obesity Patient History - Cardiac/Respiratory: Hyperlipidemia, Pneumonia Patient History - Cancer: No Hx of Cancer Patient History - Surgical Procedures: Appendectomy, Cholecystectomy, Colonoscopy, Hysterectomy, Total Knee Replacement Patient History - Other: None - Family History Mother Family History - Medical: Kidney stone Family History - Cardiac/Respiratory: Hypertension, Hyperlipidemia - 82 Family History - Cancer: No pertinent family hx Father Family History - Medical: - 52- [place], HTN. Family History - Cardiac/Respiratory: Myocardial Infarction - Social History Living Situations: alone Abuse History: No History of abuse Psych History: No pertinent hx Smoking Status: Current every day smoker Have you smoked in the past 12 months: Yes Alcohol Use: none Drug Use: none - Immunizations Immunizations Up to Date: Yes Hx Pneumococcal Vaccination: No History of Influenza Vaccine: Yes Procedures ANESTH INJECT SYMP NERVE (10/23/09) APPLICATION OF SPLINT (05/06/12) BONE GRAFT-TIBIA/FIBULA (09/14/10) COLONOSCOPY (04/17/12) DPT ADMINISTRATION (10/04/11) EXC LES SOFT TISSUE NEC (10/22/10) EXCIS KNEE SEMILUN CARTL (04/22/11) EXCISE BONE FOR GFT NEC (09/14/10) EXPLOR TEND SHEATH-HAND (04/20/12) INJECT STEROID (12/05/14) INJECTION INTO JOINT (12/05/14) KNEE ARTHROSCOPY (04/22/11) KNEE STRUCTURE DIVISION (12/17/08) KNEE SYNOVECTOMY (04/22/11) LOC EXC LES TIBIA/FIBULA (09/14/10) OSTEOCLASIS-FEMUR (12/17/08) OTHER REPAIR AND PLASTIC OPER OF TIBIA/FIBULA (12/17/08) OTHER REPAIR OF KNEE (08/13/08) REMOV INT FIX-TIB/FIBULA (08/06/10) REPAIR R LOW LEG SUBCU/FASCIA, OPEN APPROACH (03/23/16) SPINAL TAP (07/29/09) SYMPATH NERVE INJECT NEC (10/23/09) TIBIA & FIBULA BIOPSY (05/12/11) TOTAL KNEE REPLACEMENT (12/06/11) Medications - Medications Current Medications: Current Medications Acetaminophen (Tylenol) 500 mg PO Q6H PRN PRN Reason: Fever Stop: 07/11/16 20:34 Last Admin: 06/15/16 06:32 Dose: 500 mg Acetaminophen/Hydrocodone Bitart ([place] 5-325) 1 each PO Q6H PRN PRN Reason: Pain Stop: 07/12/16 03:34 Last Admin: 06/12/16 03:53 Dose: 1 each Cholecalciferol (Vitamin D) 5,000 unit PO DAILY@1730 [facility] Stop: 07/11/16 17:31 Last Admin: 06/14/16 16:45 Dose: 5,000 unit Duloxetine HCl (Cymbalta) 60 mg PO DAILY [facility] Stop: 07/12/16 09:01 Last Admin: 06/15/16 08:39 Dose: 60 mg Enoxaparin Sodium (Lovenox) 40 mg SC Q24H [facility] Stop: 07/11/16 15:46 Last Admin: 06/14/16 16:08 Dose: 40 mg Cefoxitin Sodium 2 gm/ (Dextrose/Water) 100 mls @ 200 mls/hr IV Q6H [facility] PRN Reason: Protocol Stop: 07/11/16 16:01 Last Admin: 06/15/16 09:28 Dose: 200 mls/hr Vancomycin HCl 1.25 gm/ (Dextrose/Water) 250 mls @ 140 mls/hr IV Q12H [facility] PRN Reason: Protocol Stop: 07/13/16 16:31 Last Admin: 06/15/16 05:16 Dose: 140 mls/hr Lactobacillus Acidophilus (Bacid) 1 cap PO BID [facility] Stop: 07/13/16 21:01 Last Admin: 06/15/16 08:39 Dose: 1 cap Levothyroxine Sodium (Synthroid) 125 mcg PO DAILY@0700 [facility] Stop: 07/12/16 07:01 Last Admin: 06/15/16 06:30 Dose: 125 mcg Nicotine (Nicoderm) 21 mg TD Q24H [facility] Stop: 07/11/16 15:46 Last Admin: 06/14/16 16:08 Dose: Not Given Melatonin/Pyridoxine Hcl (B6) [Melatonin 5 Mg Tablet] 5 mg PO HS [facility] Stop: 07/11/16 21:01 Last Admin: 06/14/16 21:03 Dose: Not Given Ondansetron HCl (Zofran) 4 mg IV Q6H PRN PRN Reason: Nausea And Vomiting Stop: 07/12/16 05:40 Last Admin: 06/13/16 12:33 Dose: 4 mg Simvastatin (Zocor) 40 mg PO HS [facility] Stop: 07/11/16 21:01 Last Admin: 06/14/16 21:04 Dose: 40 mg Physical Examination - Exam Narrative: Gen: A&Ox3, NAD Resp: breathing nonlabored on RA MSK: small ~5 mm ulcer over the anterior aspect of the distal third of the lower leg, partial thickness, no active drainage, mild surround erythema, previous erythema of the leg marked out and has receded significantly, no pain with ROM of the knee, stable to varus/valgus stress, SILT, 5/5 EHL/FHL/DF/PF, cap refill <3 sec MRI reviewed: Consistent with cellulitis, minimal fluid collection in subcutaneous tissue, no drainable abscess. Vital Signs: Vital Signs - Last Taken Temp 36.6 C 06/15/16 10:16 Pulse 67 06/15/16 10:16 Resp 18 06/15/16 09:00 BP 141/70 06/15/16 10:16 Pulse Ox 98 06/15/16 10:16 O2 Oxygen Delivery Method Room Air - Results and Findings: Narrative: 55 yo F w/ non-healing ulcer and cellulitis of R lower leg. - given MRI findings and significant improvement with medical treatment, there is no indication for any surgical intervention at this time. - recommend continued antibiotics, agree with ID consult, continue local wound care per wound clinic - does not need to follow up with me as an outpatient Lab/Microbiology results last 24 hrs: Abnormal/Pending Laboratory Last 24 HRS 06/15/16 06/15/16 06/15/16 05:45 05:45 05:45 RBC 3.99 L Hgb 10.8 L Hct 33.4 L RDW 14.9 H MPV 9.9 H Immature Gran % (Auto) 1.60 H Immature Gran # (Auto) 0.09 H Lymphocytes # 1.3 L TIBC C-Reactive Prot, Quant 5.6 H Procalcitonin 0.63 H 06/14/16 04:50 RBC Hgb Hct RDW MPV Immature Gran % (Auto) Immature Gran # (Auto) Lymphocytes # TIBC 193 L C-Reactive Prot, Quant Procalcitonin - Assessments/Findings (1) Cellulitis Problem: Acute Qualifiers: Site of cellulitis: extremity Site of cellulitis of extremity: lower extremity Laterality: right Qualified Code(s): L03.115 - Cellulitis of right lower limb
--- NOTE | 2016-06-15 14:38 | DS ---
(1) Cellulitis of right lower extremity Problem: Acute (2) Bilateral lower extremity edema Problem: Chronic (3) Hypothyroidism Problem: Chronic Qualifiers: Hypothyroidism type: postoperative Qualified Code(s): E89.0 - Postprocedural hypothyroidism (4) Neuropathy of both feet Problem: Chronic (5) Tobacco abuse disorder Problem: Chronic (6) Osteoarthritis Diagnosis(s): RT. TKA -2011. Problem: Chronic (7) Obesity Diagnosis(s): BMI-38.0 . Problem: Chronic Description of Stay: DATE OF ADMISSION: 06/11/2016. DATE OF DISCHARGE: 06/15/2016. DIAGNOSTICS: 1. ULTRASOUND OF RT LEG 06/12/2016. 2. MRI TIB-FIB RT LEG 06/14/2016. HOSPITAL COURSE: Trang Owen is a 55-year-old WF with a history of HLD, hypothyroidism, OA [ RT TKA 2011], neuropathy, obesity, edema who was admitted on 06/11/2016 because of sudden onset of fever, chills and redness of RT lower extremity 1 day [employer]IENT [employer]. Labs on admission WBC 17.9, CRP 13.6, pro calcitonin 5.04, ESR 51 and lactic acid 1.8. Patient has a superficial nonhealing ulcer on the anterior aspect of right lower extremity for which she has been seen at the wound clinic at [facility] for the last 2-3 months. She has been on oral antibiotics 2-3 times since then. After blood cultures were drawn, the patient was started on cefoxitin and vancomycin. Blood cultures were negative. X-rays of her tib-fib were negative. MRI was negative for osteomyelitis. Ultrasound and the MRI showed a fluid collection [3.2 cm X 0.5 cm] with the possibility of an abscess formation. Both Dr. Preciado and Dr. Sandhu felt the collections were too small to be drained and were part of cellulitis rather than abscess formation. Patient responded well to antibiotics and the inflammatory markers trended down. She continues to have significant edema RT lower leg. Wound clinic does NOT recommend compression stockings. She is being discharged in a stable condition today with a follow-up with ID at 9 AM on 06/16/2016 at [facility] for recommendation of antibiotics and furthur RX. Greater than 50 minutes was spent discussing plan of care with the patient, discharging patient, reconciliation of medications, preparation and dictating discharge summary. Procedures Performed: none Results and Findings: Laboratory Tests 06/11/16 06/12/16 06/13/16 06/15/16 15:30 05:15 04:05 05:45 WBC 17.9 H 13.6 H D 6.6 D 5.6 Hgb 11.9 L 10.9 L 10.2 L 10.8 Hct 37.2 33.4 L 31.7 L 33.4 Plt Count 295 280 223 303 06/11/16 15:30 Plasma Sodium 142 Potassium 3.6 Chloride 105 Carbon Dioxide 25.0 BUN 17 D Creatinine 0.97 Est GFR (Non-Af Amer) 64 D Calcium Adj for Albumin 9.0 AST 28 ALT 52 Alkaline Phosphatase 105 Total Protein 6.6 Albumin 2.8 L 06/11/16 06/15/16 15:30 5:45 ESR 51 H Lactic Acid, Venous 1.8 C-Reactive Prot, Quant 13.6 5.6 H Procalcitonin 5.04 H 0.63 H 06/14/16 04:50 Iron 43 TIBC 193 L Transferrin % Sat 22 [employer] RT: 06/12/2016: 06:27 FINDINGS: Imaging demonstrates a small amount of fluid below the subcutaneous tissues. This measures approximately 2.20.4 cm. This may reflect a small hematoma/seroma. IMPRESSION: 1. SMALL FLUID COLLECTION IN THE SUBCUTANEOUS TISSUES IN THE REGION OF THE FOCAL LEG REDNESS/ULCERATION. MRI TIB/FIB W/ W/O RT: 06/14/2016: 09:04 IMPRESSION: No evidence of osteomyelitis. Superficial fluid and edema, greatest at the mid tibial anterior compartment. Correlate for cellulitis. Possible incomplete rim enhancement of a complement of this fluid is concerning for developing abscess [ 3.2 cm transverse 0.5 cm AP]. Fatty atrophy of the visualized musculature. Limited evaluation of the knee secondary to changes from prior TKA. Scarring at the level of the tibial tuberosity. Discharge Disposition: Home self care Disposition: Home self-care Condition: Undetermined Discharge Activity: Activity as tolerated - elevate RT leg by 6-8 inches at HS, all times if possible. Discharge Diet: Low fat/chol, High Fiber Referrals: Shadi Moran MD [Primary Care Provider] - Consultation Done:: Dr. Preciado[ General Surgery]; Dr. Sandhu[Orthopedics] Problem Oriented Discharge Instructions to Patient/Family: Cellulitis, Adult, [id number] Additional Patient Instructions (free text): Follow up appt. on Tuesday06/16/16 at 9:30 am [address] [facility] [address]. Stover at [facility], [address]. MEDICATIONS DISCONTINUED: Furosemide, spironolactone, Zaroxolyn. MEDICATIONS NEW/DOSES CHANGED: Double up on vitamin D3 2000 units -->4000 units and increase to 5000 units daily with food. Use nicotine patches. Try to QUIT smoking and soda if you can. Elevate legs at least by 6-8 inches at night. Healthy diet with lean protein. Yogurt 4-6 oz twice a day. Appt with Dr. Lim on 06/17/16. @ 9:30am. Prescriptions (Any new or edited meds): Cholecalciferol (Vitamin D3) [Vitamin D3] 5,000 unit PO DAILY #100 tablet Cyanocobalamin (Vitamin B-12) [Vitamin B12] 1 mcg PO DAILY #100 tablet Nicotine [Nicoderm] 21 mg TD Q24H #30 patch.td24 Complete Home Medications List: Complete Home Medication List: Levothyroxine Sodium [Synthroid] 125 mcg PO DAILY 04/14/12 Simvastatin 40 mg PO HS 04/14/12 Gabapentin [Neurontin] 600 mg PO HS 11/05/15 DULoxetine HCL [Cymbalta] 60 mg PO DAILY 06/11/16 Melatonin/Pyridoxine HCl (B6) [Melatonin 5 mg Tablet] 5 mg PO HS 06/11/16 Cholecalciferol (Vitamin D3) [Vitamin D3] 5,000 unit PO DAILY #100 tablet Cyanocobalamin (Vitamin B-12) [Vitamin B12] 1 mcg PO DAILY #100 tablet 06/15/16 Nicotine [Nicoderm] 21 mg TD Q24H #30 patch.td24 06/15/16
[2016-06-15] MEDS: NICOTINE 21 MG PATC TD SCH (15:03)
[2016-06-15] MEDS: ENOXAPARIN SODIUM 40 MG/0.4 ML SYRG SC SCH (15:03)
[2016-06-15 15:13] VITALS: BP 133/58
[2016-06-15] MEDS ORDERED: VANCOMYCIN HCL LEVEL XX ONE (16:00)
[2016-06-15] MEDS: CHOLECALCIFEROL 5,000 UNIT TABLET PO SCH (16:40)
== END 2016-06-15 18:57 | disposition home or self-care (01) | DRG 603 ==
LOC: MS 14:47
PROVIDERS: ADMIT Internal Medicine; ATTEND Internal Medicine
DX: L03.115 Cellulitis of right lower limb (principal); I89.0 Lymphedema, not elsewhere classified; F17.290 Nicotine dependence, other tobacco product, uncomplicated; E03.9 Hypothyroidism, unspecified; R60.9 Edema, unspecified; E78.5 Hyperlipidemia, unspecified; Z96.651 Presence of right artificial knee joint

== ENCOUNTER 2016-07-25 00:31 | Emergency (ER) | payer MEDICAID ==
--- OUTSIDE RECORDS SUMMARY | 2016-07-25 04:02 | XMS REPORT | Continuity of Care Document ---
:1960 Author Organization [facility] ([facility]) Address [address] [place] [address] Phone [phone] Care Team Providers Name Role Phone Caitlin Castro Primary Care Provider [phone] Source Comments This disclosure is being made pursuant to the Care Everywhere program, applicable federal and state laws, and may not contain all informaitonavailable regarding this patient.[facility] ([facility]) Active Allergies and Adverse Reactions Allergen Noted [...]
[2016-07-25 04:05] VITALS: BP 131/87
--- NOTE | 2016-07-25 04:11 | ERNOTE ---
Upper Extremity HPI - General Extremities Pain Location: shoulder: left, forearm: left Time Seen by Provider: 07/25/16 03:54 Source: patient Exam Limitations: no limitations - Immun/Allergies/Home Medications Immunizations: IMMUNIZATION HX Immunizations Up to Date Yes History of Influenza Vaccine Yes Hx Pneumococcal Vaccination No Allergies/Adverse Reactions: Allergies Allergy/AdvReac Type Severity Reaction Status Date / Time penicillin G Allergy Severe anaphlactic Verified 04/15/16 08:25 sulfacetamide Allergy Severe anaphylacti Verified 04/15/16 08:25 c Penicillins Allergy Verified 04/15/16 08:25 sulfamethoxazole Allergy Verified 04/15/16 08:25 [From Bactrim DS] trimethoprim Allergy Verified 04/15/16 08:25 [From Bactrim DS] chantrix Allergy Mild Itching Uncoded 04/15/16 08:25 Home Medications: HOME MEDICATIONS Levothyroxine Sodium [Synthroid] 125 mcg PO DAILY 04/14/12 [Last Taken 04/13/16 09:00] Simvastatin 40 mg PO HS 04/14/12 [Last Taken 04/12/16 21:00] Gabapentin [Neurontin] 600 mg PO HS 11/05/15 [Last Taken 04/12/16 21:00] DULoxetine HCL [Cymbalta] 60 mg PO DAILY 06/11/16 [Last Taken Unknown] Melatonin/Pyridoxine HCl (B6) [Melatonin 5 mg Tablet] 5 mg PO HS 06/11/16 [Last Taken Unknown] Cholecalciferol (Vitamin D3) [Vitamin D3] 5,000 unit PO DAILY #100 tablet [Last Taken Unknown] Cyanocobalamin (Vitamin B-12) [Vitamin B12] 1 mcg PO DAILY #100 tablet 06/15/16 [Last Taken Unknown] - History of Present Illness Narrative: Patient tripped and fell at home landing on her left side on the carpet. She denies hitting her head or passing out. She mainly has pain in her left shoulder and a bruise on her left forearm. Date (Duration): 07/24/16 Time (Timing): 22:30 Occurred: just prior to arrival Location of Incident: home Severity: moderate Method of Injury: Reports: fell Reason for Fall: Reports: lost balance Loss of Consciousness: Reports: no loss of consciousness Associated Symptoms: Denies: tingling, weakness, numbness distally, loss of feeling Other Injuries: Reports: none Prior Treament: Denies: recently seen Review of Systems - Review of Systems Constitutional: Absent: recent illness, fever Respiratory: Absent: shortness of breath, cough Cardiology: Absent: chest pain Gastrointestinal/Abdominal: Absent: nausea, vomiting Musculoskeletal: Present: See HPI Skin: Absent: rash Neurological: Absent: weakness, numbness - Patient's Past Medical History Patient History - Medical: Anxiety, Arthritis, Depression, Hypothyroidism, Obesity Patient History - Cardiac/Respiratory: Hyperlipidemia, Pneumonia Patient History - Cancer: No Hx of Cancer Patient History - Surgical Procedures: Appendectomy, Cholecystectomy, Colonoscopy, Hysterectomy, Total Knee Replacement Patient History - Other: None - Family History Mother Family History - Medical: Kidney stone Family History - Cardiac/Respiratory: Hypertension, Hyperlipidemia Family History - Cancer: No pertinent family hx Father Family History - Medical: Family History - Cardiac/Respiratory: Myocardial Infarction - Social History Living Situations: alone Abuse History: No History of abuse Psych History: No pertinent hx Smoking Status: Current every day smoker Alcohol Use: none Drug Use: none - Immunizations Immunizations Up to Date: Yes Hx Pneumococcal Vaccination: No History of Influenza Vaccine: Yes Physical Exam - Physical Exam General Appearance: Present: wd/wn, no apparent distress, obese Eye Exam: Normal inspection: bilateral Ears, Nose, Throat: Present: other - no sign of headinjury Neck: Present: normal inspection, nontender Respiratory: Present: no respiratory distress, normal breath sounds, chest nontender, lungs clear Cardiovascular/Chest: Present: regular rate, rhythm, no murmur Back Exam: Present: normal inspection, no vertebral tenderness Extremity Exam: Present: normal inspection, normal except - - tender over left AC joint, pain on range of motion, patient uses left arm and even pushes herself up with it, normal range of motion Neurological Exam: Present: alert, oriented, normal mood/affect, no motor/ sensory deficits Skin Exam: Present: normal color, warm/dry ED Progress - Vital Signs Patient's Vital Signs:: I have reviewed the patient's vital signs. Vital Signs: Vital Signs 07/25/16 02:49 Temperature 37.4 C Pulse Rate 93 Respiratory 18 Rate Blood Pressure 144/78 O2 Sat by Pulse 98 Oximetry - X-Ray X-Ray #1 X-Ray: shoulder - no bony injury Interpretation: Interp. by me X-Ray #2 X-Ray: forearm - no bony injury Interpretation: Interp. by me - Progress/Reassessment Chief Complaint: Upper Extremity Injury/Problem Progress Note-Subjective: 07/25/16 04:06 discussed xray results, offered ibuprofen, patient will take own Departure Clinical Impression: Sprain of shoulder, left Qualifiers: Encounter type: initial encounter Shoulder sprain type: unspecified sprain Qualified Code(s): S43.402A - Unspecified sprain of left shoulder joint, initial encounter - Departure Disposition: Home self-care Condition: Good Instructions: Shoulder Sprain Additional Instructions: take ibuprofen as needed for pain and follow up with your doctor as needed Referrals: Shadi Moran MD [Primary Care Provider] -
== END 2016-07-25 04:06 | disposition home or self-care (01) ==
LOC: ER 00:31
DX: S43.402A Unspecified sprain of left shoulder joint, initial encounter (principal); Z72.0 Tobacco use; W01.0XXA Fall on same level from slipping, tripping and stumbling without subsequent striking against object, initial encounter; Y93.9 Activity, unspecified; Y92.009 Unspecified place in unspecified non-institutional (private) residence as the place of occurrence of the external cause; E78.5 Hyperlipidemia, unspecified; E03.9 Hypothyroidism, unspecified; M19.90 Unspecified osteoarthritis, unspecified site; F41.8 Other specified anxiety disorders

== ENCOUNTER 2016-09-28 21:49 | Observation (INO) | payer MEDICAID ==
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
[2016-09-28 22:43] LABS: Hemoglobin 13.9 gm/dL (12.5-16.0); Mean Corpuscular Hemoglobin 26.8 pg (27-31); Mean Corpuscular Hgb Conc 32.3 g/dl (32-36); Neutrophil # 6.2 K/mm3 (1.3-6.0); Platelet Count 354 K/mm3 (150-450); Red Blood Count 5.18 M/mm3 (4.2-5.4); Red Cell Distribution Width 14.9 % (11.5-14.0); White Blood Count 8.9 K/mm3 (4.0-10.5)
[2016-09-28 23:33] LABS: Prothrombin Time (Patient) 10.1 Seconds (9.4-11.4)
[2016-09-28 23:40] LABS: ALT 52 U/L (19-67); AST 78 U/L (0-48); Albumin * 3.2 gm/dl (3.4-5.0); Alkaline Phosphatase * 124 U/L (50-170); Anion Gap 15.3 mmol/L (6.8-13.8); BUN/Creatinine Ratio 16.9 (9.0-21.6); Bilirubin, Total 0.6 mg/dL (0.0-1.1); Blood Urea Nitrogen 14 mg/dL (3-23); Calcium * 8.7 mg/dL (7.9-10.9); Carbon Dioxide 27.1 mmol/L (24-32.6); Chloride 104 mmol/L (97-106); Glucose * 131 mg/dL (70-110); Sodium 140 mmol/L (132-142); Total Protein 7.7 gm/dL (6.2-8.2); Troponin I Less than 0.017 ng/ml (0.00-0.10)
[2016-09-28 23:42] LABS: INR 0.97 INR (0.90-1.10); Partial Thrombolplastin Time 37.2 Seconds (24-32)
[2016-09-28 23:43] LABS: Potassium 6.4 mmol/L (3.4-4.6)
[2016-09-29] MEDS ORDERED: SODIUM POLYSTYRENE SULFON/SORB 15 G/60 ML BTL PO ONE (00:11)
[2016-09-29] MEDS ORDERED: SODIUM POLYSTYRENE SULFON/SORB 15 G/60 ML BTL ONE (00:15)
[2016-09-29] MEDS ORDERED: FUROSEMIDE 10 MG/ML VIAL IV ONE (00:25)
[2016-09-29] MEDS ORDERED: ALBUTEROL SULFATE 2.5 MG/3 ML VIAL.NEB IH ONE (00:26)
[2016-09-29] MEDS ORDERED: FUROSEMIDE 10 MG/ML VIAL ONE (00:30)
[2016-09-29] MEDS ORDERED: ALBUTEROL SULFATE 2.5 MG/0.5 ML VIAL.NEB IH ONE (00:30)
[2016-09-29] MEDS ORDERED: BELLADONNA ALKALOIDS/PHENOBARB 60 ML BTL PO ONE (02:19)
[2016-09-29] MEDS ORDERED: LIDOCAINE HCL 20 ML UDC PO ONE (02:19)
[2016-09-29] MEDS ORDERED: MAG HYDROX/ALUMINUM HYD/SIMETH 30 ML UDC PO ONE (02:19)
[2016-09-29] MEDS ORDERED: LORazepam 2 MG/ML DISP.SYRIN IV ONE (02:19)
[2016-09-29] MEDS ORDERED: NITROGLYCERIN 0.4 MG/TAB BTL SL PRN (02:21)
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
[2016-09-29] MEDS ORDERED: ACETAMINOPHEN 325 MG TABLET PO PRN (02:47)
[2016-09-29 04:36] LABS: Anion Gap 13.9 mmol/L (6.8-13.8); BUN/Creatinine Ratio 15.4 (9.0-21.6); Blood Urea Nitrogen 14 mg/dL (3-23); Calcium * 8.8 mg/dL (7.9-10.9); Carbon Dioxide 25.7 mmol/L (24-32.6); Chloride 106 mmol/L (97-106); Estimated Creat Clear 62.9; Glucose * 126 mg/dL (70-110); Potassium 3.6 mmol/L (3.4-4.6); Sodium 142 mmol/L (132-142); Troponin I Less than 0.017 ng/ml (0.00-0.10)
[2016-09-29] MEDS ORDERED: LEVOTHYROXINE SODIUM 125 MCG TABLET PO SCH (07:00)
[2016-09-29] MEDS: GABAPENTIN 300 MG CAPSULE PO SCH ×2 (07:37→12:02)
[2016-09-29] MEDS ORDERED: CHOLECALCIFEROL 5,000 UNIT TABLET PO SCH (09:00)
[2016-09-29] MEDS ORDERED: ENOXAPARIN SODIUM 40 MG/0.4 ML SYRG SC SCH (09:00)
[2016-09-29] MEDS ORDERED: DULoxetine HCL 30 MG CAPSULE.SA PO SCH (09:00)
[2016-09-29] MEDS ORDERED: CYANOCOBALAMIN 1,000 MCG TABLET PO SCH (09:00)
[2016-09-29] MEDS: POTASSIUM CHLORIDE 20 MEQ TABLET.SA PO SCH ×2 (09:15→16:07)
[2016-09-29 15:14] VITALS: BP 118/59
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
[2016-09-29] MEDS ORDERED: SIMVASTATIN 40 MG TABLET PO SCH (21:00)
[2016-09-29] MEDS ORDERED: GABAPENTIN 600 MG TABLET PO SCH (21:00)
== END 2016-09-29 18:21 | disposition home or self-care (01) ==
LOC: ER 21:49 → MS 09-29 00:51
PROVIDERS: ADMIT Nurse Practitioner Critical Care Medicine; ATTEND Internal Medicine
DX: R07.9 Chest pain, unspecified (principal); E87.5 Hyperkalemia; E78.5 Hyperlipidemia, unspecified; E03.9 Hypothyroidism, unspecified; E66.01 Morbid (severe) obesity due to excess calories; Z68.39 Body mass index [BMI] 39.0-39.9, adult; M19.90 Unspecified osteoarthritis, unspecified site; Z72.0 Tobacco use; F41.9 Anxiety disorder, unspecified
CPT/HCPCS: 36415; 71020; 80048; 80053; 84132; 84484; 85025; 85610; 85730; 93005; 96374; 96375; 99284; G0378

== ENCOUNTER 2016-10-26 22:09 | Emergency (ER) | payer MEDICAID ==
[2016-10-26 22:19] VITALS: BP 155/78
--- NOTE | 2016-10-26 22:56 | ERNOTE ---
Lower Extremity HPI - General Lower Extremities Pain: leg: right - tripped and hurt her leg Time Seen by Provider: 10/26/16 22:36 Source: patient, family Exam Limitations: no limitations - Immun/Allergies/Home Medications Immunizations: IMMUNIZATION HX Immunizations Up to Date Yes History of Influenza Vaccine No Hx Pneumococcal Vaccination No Allergies/Adverse Reactions: Allergies Allergy/AdvReac Type Severity Reaction Status Date / Time penicillin G Allergy Severe anaphlactic Verified 10/26/16 22:19 sulfacetamide Allergy Severe anaphylacti Verified 10/26/16 22:19 c Penicillins Allergy Verified 10/26/16 22:19 sulfamethoxazole Allergy Verified 10/26/16 22:19 [From Bactrim DS] trimethoprim Allergy Verified 10/26/16 22:19 [From Bactrim DS] chantrix Allergy Mild Itching Uncoded 10/26/16 22:19 Home Medications: HOME MEDICATIONS Levothyroxine Sodium [Synthroid] 125 mcg PO DAILY 04/14/12 [Last Taken 09/27/16] Simvastatin 40 mg PO HS 04/14/12 [Last Taken 09/27/16] Gabapentin [Neurontin] 600 mg PO HS 11/05/15 [Last Taken 09/27/16] DULoxetine HCL [Cymbalta] 60 mg PO DAILY 06/11/16 [Last Taken 09/27/16] Melatonin/Pyridoxine HCl (B6) [Melatonin 5 mg Tablet] 5 mg PO HS 06/11/16 [Last Taken 09/27/16] Cholecalciferol (Vitamin D3) [Vitamin D3] 5,000 unit PO DAILY #100 tablet [Last Taken 09/27/16] Gabapentin [Neurontin] 300 mg PO 0800,1200 09/28/16 [Last Taken 09/27/16] Cyanocobalamin (Vitamin B-12) [Vitamin B12] 1 mcg PO BID 09/29/16 [Last Taken ] Furosemide [Lasix] 40 mg PO BID 10/26/16 [Last Taken Unknown] Nabumetone 750 mg PO BID #20 tablet 10/26/16 [Last Taken Unknown] - History of Present Illness Narrative: Pt states she tripped and fell in her house 2 days ago striking her leg and arms. Has had difficulty walking a times Occurred: other - Tuesday Location of Incident: home Method of Injury: Reports: fell Reason for Fall: Reports: tripped Loss of Consciousness: Reports: no loss of consciousness Other Injuries: Reports: extremities - right elbow abrasion Subsequent Symptoms: Denies: sensory loss, numbness Review of Systems - Review of Systems Constitutional: Absent: recent illness EYE: Present: no symptoms reported ENT: Present: no symptoms reported Musculoskeletal: Absent: back pain, neck pain Skin: Present: other - abrasions on both arms Neurological: Absent: numbness, tingling - Patient's Past Medical History Patient History - Medical: Anxiety, Arthritis, Depression, Hypothyroidism, Obesity Patient History - Cardiac/Respiratory: Hyperlipidemia, Pneumonia, Peripheral Vascular Disease Patient History - Cancer: No Hx of Cancer Patient History - Surgical Procedures: Appendectomy, Cholecystectomy, Colonoscopy, Hysterectomy, Total Knee Replacement Patient History - Other: None LMP (females 10-50): other - Family History Mother Family History - Medical: Kidney stone Family History - Cardiac/Respiratory: Hypertension, Hyperlipidemia Family History - Cancer: No pertinent family hx Father Family History - Medical: Family History - Cardiac/Respiratory: Myocardial Infarction - Social History Living Situations: home Abuse History: No History of abuse Psych History: No pertinent hx Smoking Status: Current every day smoker Alcohol Use: none Drug Use: none - Immunizations Immunizations Up to Date: Yes Hx Pneumococcal Vaccination: No History of Influenza Vaccine: No Physical Exam - Physical Exam General Appearance: Present: wd/wn, alert, no apparent distress Head Exam: Present: normal inspection, no evidence of injury Ears, Nose, Throat: Present: normal ENT inspection Neck: Present: normal inspection, nontender Respiratory: Present: no respiratory distress, no accessory muscle use Back Exam: Present: normal range of motion, no vertebral tenderness Extremity Exam: Present: decreased range of motion - right knee. Tenderness mid lateral leg, no swelling, other - abrasions on both forearms. Absent: joint redness, joint swelling Neurological Exam: Present: alert, oriented, normal mood/affect, no motor/ sensory deficits Skin Exam: Present: normal color, warm/dry Lymphatic Exam: Present: no adenopathy ED Progress - Vital Signs Vital Signs: Vital Signs 10/26/16 22:16 Temperature 36.9 C Pulse Rate 86 Blood Pressure 155/78 O2 Sat by Pulse 100 Oximetry - X-Ray X-Ray #1 X-Ray: leg Interpretation: Interp. by me X-ray Comments: No fracture or dislocation. Right TKA intact - Progress/Reassessment Chief Complaint: Lower Extremity Pain/ Injury Departure Clinical Impression: Contusion Qualifiers: Encounter type: initial encounter Contusion area: lower leg Laterality: right Qualified Code(s): S80.11XA - Contusion of right lower leg, initial encounter - Departure Disposition: Home self-care Condition: Good Instructions: Contusion, [id number] Additional Instructions: Stop ibuprofen and take the prescription medication for pain and swelling. slowly walk on the leg more and more. keep elevated 30 min at a time 3-4 times a day Referrals: Shadi Moran MD [Primary Care Provider] - Prescriptions: Nabumetone 750 mg PO BID #20 tablet
== END 2016-10-26 23:00 | disposition home or self-care (01) ==
LOC: ER 22:09
DX: S80.11XA Contusion of right lower leg, initial encounter (principal); E03.9 Hypothyroidism, unspecified; F32.9 Major depressive disorder, single episode, unspecified; F41.9 Anxiety disorder, unspecified; M19.90 Unspecified osteoarthritis, unspecified site; E78.5 Hyperlipidemia, unspecified; F17.200 Nicotine dependence, unspecified, uncomplicated; W01.0XXA Fall on same level from slipping, tripping and stumbling without subsequent striking against object, initial encounter; Y92.009 Unspecified place in unspecified non-institutional (private) residence as the place of occurrence of the external cause

== ENCOUNTER 2016-12-11 21:52 | Emergency (ER) | payer MEDICAID ==
--- NOTE | 2016-12-11 23:20 | ERNOTE ---
Lower Extremity HPI - Narrative Date of Service: 12/11/16 - General Lower Extremities Pain: leg: bilateral, thigh: bilateral, foot: bilateral, ankle : bilateral Time Seen by Provider: 12/11/16 22:33 Source: patient, RN notes reviewed Exam Limitations: no limitations - Immun/Allergies/Home Medications Immunizations: IMMUNIZATION HX Immunizations Up to Date Yes History of Influenza Vaccine No Hx Pneumococcal Vaccination No Allergies/Adverse Reactions: Allergies Allergy/AdvReac Type Severity Reaction Status Date / Time penicillin G Allergy Severe anaphlactic Verified 12/11/16 22:00 sulfacetamide Allergy Severe anaphylacti Verified 12/11/16 22:00 c Penicillins Allergy Verified 12/11/16 22:00 sulfamethoxazole Allergy Verified 12/11/16 22:00 [From Bactrim DS] trimethoprim Allergy Verified 12/11/16 22:00 [From Bactrim DS] chantrix Allergy Mild Itching Uncoded 12/11/16 22:00 Home Medications: HOME MEDICATIONS Levothyroxine Sodium [Synthroid] 125 mcg PO DAILY 04/14/12 [Last Taken 09/27/16] Simvastatin 40 mg PO HS 04/14/12 [Last Taken 09/27/16] Gabapentin [Neurontin] 600 mg PO HS 11/05/15 [Last Taken 09/27/16] DULoxetine HCL [Cymbalta] 60 mg PO DAILY 06/11/16 [Last Taken 09/27/16] Melatonin/Pyridoxine HCl (B6) [Melatonin 5 mg Tablet] 5 mg PO HS 06/11/16 [Last Taken 09/27/16] Cholecalciferol (Vitamin D3) [Vitamin D3] 5,000 unit PO DAILY #100 tablet [Last Taken 09/27/16] Gabapentin [Neurontin] 300 mg PO 0800,1200 09/28/16 [Last Taken 09/27/16] Cyanocobalamin (Vitamin B-12) [Vitamin B12] 1 mcg PO BID 09/29/16 [Last Taken ] Furosemide [Lasix] 40 mg PO DAILY #15 tablet 12/11/16 [Last Taken Unknown] Nabumetone 750 mg PO BID PRN 12/11/16 [Last Taken Unknown] - History of Present Illness Narrative: Patient states that she was seeing Dr. Moran, who took her off of all of her diuretics. Now she has swelling of both of her lower extremities that is painful. She states that she feels like her skin is getting taut all the way up to her hips. She had some support hose, but those have worn out. She is scheduled to see Dr. Beckwith in the near future, she is not sure exactly when. Occurred: other - chronic, worsening Method of Injury: Reports: no apparent injury Modifying Factors - (Worsens): Reports: jarring, movement Associated Symptoms: Reports: none Other Injuries: Reports: none Review of Systems - Review of Systems Constitutional: Absent: recent illness, fever, chills EYE: Present: no symptoms reported ENT: Present: no symptoms reported Respiratory: Present: shortness of breath, orthopnea. Absent: cough Cardiology: Absent: chest pain, palpitations Gastrointestinal/Abdominal: Present: diarrhea. Absent: nausea, vomiting Genitourinary: Present: no symptoms reported Musculoskeletal: Present: other - bilateral lower extremity pain Skin: Present: other - swelling bilateral lower extremities Neurological: Present: no symptoms reported - Patient's Past Medical History Patient History - Medical: Anxiety, Arthritis, Depression, Hypothyroidism, Obesity, Other Patient History - Cardiac/Respiratory: Hyperlipidemia, Pneumonia, Peripheral Vascular Disease Patient History - Cancer: No Hx of Cancer Patient History - Surgical Procedures: Appendectomy, Cholecystectomy, Colonoscopy, Hysterectomy, Total Knee Replacement Patient History - Other: None LMP (females 10-50): other - Family History Mother Family History - Medical: Kidney stone Family History - Cardiac/Respiratory: Hypertension, Hyperlipidemia Family History - Cancer: No pertinent family hx Father Family History - Medical: Family History - Cardiac/Respiratory: Myocardial Infarction - Social History Living Situations: home Abuse History: No History of abuse Psych History: No pertinent hx Smoking Status: Current every day smoker Alcohol Use: none Drug Use: none - Immunizations Immunizations Up to Date: Yes Hx Pneumococcal Vaccination: No History of Influenza Vaccine: No Physical Exam - Physical Exam General Appearance: Present: wd/wn, alert, moderate distress, obese Head Exam: Present: normal inspection, no evidence of injury Eye Exam: Normal inspection: bilateral, PERRL: bilateral, EOMI: bilateral Ears, Nose, Throat: Present: normal ENT inspection Neck: Present: normal inspection, nontender Respiratory: Present: no respiratory distress, normal breath sounds, no accessory muscle use Cardiovascular/Chest: Present: regular rate, rhythm, no murmur Gastrointestinal/Abdominal: Present: normal bowel sounds, nontender, nondistended, soft Back Exam: Present: normal inspection, normal range of motion Extremity Exam: Present: pedal edema - bilaterally Neurological Exam: Present: alert, oriented, normal mood/affect Skin Exam: Present: normal color, warm/dry, other - edema bilateral lower extremities ED Progress - Vital Signs Vital Signs: Vital Signs 12/11/16 21:56 Temperature 37.2 C Pulse Rate 87 Respiratory 17 Rate Blood Pressure 160/81 O2 Sat by Pulse 98 Oximetry - Progress/Reassessment Chief Complaint: Lower Extremity Pain/ Injury Plan - Plan Plan: Lasix 40 mg PO here Departure Clinical Impression: Bilateral lower extremity edema - Departure Disposition: Home self-care Condition: Good Instructions: Peripheral Edema Referrals: Jeanette Beckwith DO [Primary Care Provider] - (3-5 days) Prescriptions: Furosemide [Lasix] 40 mg PO DAILY #15 tablet
[2016-12-12] MEDS ORDERED: FUROSEMIDE 40 MG TABLET ONE (00:07)
[2016-12-12] MEDS ORDERED: FUROSEMIDE 40 MG TABLET PO ONE (00:07)
[2016-12-12 00:12] VITALS: BP 149/83
== END 2016-12-12 00:10 | disposition home or self-care (01) ==
LOC: ER 21:52
DX: R60.0 Localized edema (principal); M19.90 Unspecified osteoarthritis, unspecified site; E03.9 Hypothyroidism, unspecified; E78.5 Hyperlipidemia, unspecified; Z87.898 Personal history of other specified conditions; F41.8 Other specified anxiety disorders; F17.200 Nicotine dependence, unspecified, uncomplicated

== ENCOUNTER 2018-08-29 18:12 | Observation (INO) ==
[2018-08-29 19:32] LABS: Hemoglobin 11.8 gm/dL (12.5-16.0); Mean Cell Volume 82.6 fl (78-100); Mean Corpuscular Hemoglobin 26.3 pg (27-31); Mean Corpuscular Hgb Conc 31.9 g/dl (32-36); Mean Platelet Volume 8.9 fl (8-12.5); Neutrophil # 15.2 K/mm3 (1.3-6.0); Neutrophil % 91.8 % (42-75.0); Platelet Count 298 K/mm3 (150-450); Red Blood Count 4.48 M/mm3 (4.2-5.4); Red Cell Distribution Width 15.1 % (11.5-14.0); White Blood Count 16.6 K/mm3 (4.0-10.5)
[2018-08-29 19:45] LABS: Albumin * 2.6 gm/dl (3.4-5.0); Anion Gap 14.3 mmol/L (6.8-13.8); BUN/Creatinine Ratio 21.2 (9.0-21.6); Bilirubin, Total 0.9 mg/dL (0.0-1.1); Ca. Corrected For Albumin 9.4 mg/dL (8.4-10.2); Calcium * 8.6 mg/dL (7.9-10.9); Carbon Dioxide 23.7 mmol/L (24-32.6); Total Protein 6.5 gm/dL (6.2-8.2)
--- NOTE | 2018-08-29 20:31 | ERNOTE ---
Lower Extremity HPI - General Lower Extremities Pain: leg: left, thigh: left - redness and soreness Time Seen by Provider: 08/29/18 20:11 Source: patient Exam Limitations: no limitations - Immun/Allergies/Home Medications Immunizations: IMMUNIZATION HX Immunizations Up to Date Yes History of Influenza Vaccine No Hx Pneumococcal Vaccination No Allergies/Adverse Reactions: Allergies Allergy/AdvReac Type Severity Reaction Status Date / Time penicillin G Allergy Severe anaphlactic Verified 08/29/18 18:29 Penicillins Allergy Severe Verified 08/29/18 18:29 sulfacetamide Allergy Severe anaphylacti Verified 08/29/18 18:29 c sulfamethoxazole Allergy Severe Verified 08/29/18 18:29 [From Bactrim DS] trimethoprim Allergy Severe Anaphylaxis Verified 08/29/18 18:29 [From Bactrim DS] chantrix Allergy Unknown RASH Uncoded 08/29/18 18:29 Home Medications: HOME MEDICATIONS epinephrine 0.3 mg/0.3 mL injection, auto-injector 0.3 mg IM ONCE PRN #2 dis.syr 11/22/17 [Last Taken Unknown] diphenhydramine 25 mg tablet 25 mg PO Q4H PRN #60 tab 03/03/18 [Last Taken Unknown] duloxetine 60 mg capsule,delayed release 60 mg PO DAILY #30 cap 04/04/18 [Last Taken Unknown] amlodipine 5 mg tablet 10 mg PO DAILY #90 tab 06/12/18 [Last Taken Unknown] levothyroxine 125 mcg tablet 125 mcg PO DAILY #30 tab 06/19/18 [Last Taken Unknown] Azithromycin 250 mg PO DAILY #4 tab 08/29/18 [Last Taken 08/29/18 11:00] Gabapentin 100 mg PO 1200 08/29/18 [Last Taken Unknown] Gabapentin 100 mg PO QAM 08/29/18 [Last Taken Unknown] Gabapentin 200 mg PO HS 08/29/18 [Last Taken Unknown] Simvastatin 20 mg PO DAILY 08/29/18 [Last Taken Unknown] - History of Present Illness Narrative: Patient has not been feeling well for a couple of weeks. She does have grandchildren that she sees regularly and some of them have been sick or had strep throat. Yesterday she had fever and chills and presented to the emergency room she was positive for strep, did have somewhat of a white count and her lactic acid was 2.2. She was encouraged to stay for observation overnight but she did not want to stay so we did treat her with azithromycin and encouraged her to return if she worsens. Today her left leg became red and swollen and she returned to the ER. Method of Injury: Reports: unknown Modifying Factors - (Improves): Reports: immobilization Modifying Factors - (Worsens): Reports: movement Prior Treament: Reports: recently seen, treated by physician, currently on antibiotics Review of Systems - Review of Systems Constitutional: Present: recent illness, fever, chills EYE: Absent: vision changes ENT: Present: sore throat Respiratory: Absent: shortness of breath Cardiology: Absent: chest pain Gastrointestinal/Abdominal: Present: nausea. Absent: vomiting Genitourinary: Absent: frequency, dysuria Musculoskeletal: Absent: back pain, muscle pain Skin: Present: See HPI, rash, change in color Neurological: Absent: headache, dizziness/light-headedness Endocrine: Present: excessive sweating Medical History (Updated 08/29/18 @ 01:16 by Lucius Paiz DO) Anxiety and depression Onset Date: Unknown Hyperlipidemia Onset Date: Unknown Hypothyroidism Onset Date: ~2004 Neuropathy Onset Date: Unknown Obesity Onset Date: ~2013 BMI 37.57 Osteoarthritis Onset Date: Unknown Surgical History: Surgical History (Updated 11/21/17 @ 11:21 by Denice Hercules RN) Cholecystectomy planned Onset Date: ~1997 [place], laparoscopic Colonoscopy planned Onset Date: ~04/17/12 [facility]- sigmoid diverticulosis, recheck 10 years De Quervain's disease (tenosynovitis) Onset Date: ~04/20/12 Surgery-right H/O echocardiogram Onset Date: ~10/29/14 Borderline concentric left ventricular hypertrophy, ER normal, wall motion normal, mild mitral regurg, A/E reversal noted , possible diastolic dysfunction, right ventricular systolic pressure is elevated at 30-35mmHg H/O excision of mass Onset Date: ~10/22/10 Dr Soliman- left foot mass - Verruca plantaris H/O knee surgery Onset Date: ~2010 rt with grafting from [facility] Dr Soliman H/O thyroidectomy Onset Date: ~1994 03/ of thyroid was removed H/O tubal ligation Onset Date: ~1984 H/O vaginal hysterectomy Onset Date: ~05/07/05 [facility] Onset Date: ~08/06/10 rt knee [facility]-saul History of appendectomy Onset Date: ~1977 History of incision and drainage Onset Date: ~201103/09/2011 [facility] right breast abcess, 11/18/2011 abscess left forearm Motor nerve conduction block Onset Date: ~2009 multiple sympathetic nerve blocks to right lumbar plexes S/P arthroscopic surgery of right knee Onset Date: ~2011 with tibial tuberoplasty, 04/22/2011 medial meniscectomy Status post total knee replacement, right Onset Date: ~12/06/11 Dr Soliman Family History: Family History (Updated 11/21/17 @ 10:53 by Denice Hercules RN) Mother Kidney stone Hyperlipemia Hypertension Brother Alive and well Sister Diabetes Father , age 52 Myocardial infarction Social History: Preferred Language Gabonese Smoking Status Current every day smoker Abuse History No History of abuse Psych History No pertinent hx Alcohol Use none Drug Use none (Last Updated 06/12/18 @ 12:11 by Laura Saenz MD) No Social History Section defined Physical Exam - Physical Exam General Appearance: Present: wd/wn, alert, mild distress Head Exam: Present: normal inspection, no evidence of injury Neck: Present: normal inspection, nontender, supple Respiratory: Present: no respiratory distress, no accessory muscle use, lungs clear Cardiovascular/Chest: Present: no murmur, tachycardia Gastrointestinal/Abdominal: Present: nondistended, soft Back Exam: Present: normal range of motion, no CVA tenderness Extremity Exam: Present: normal except - - Left leg mildly swollen without pitting edema. No palpable cord or other evidence of DVT, calf tenderness - Left leg Neurological Exam: Present: alert, oriented, normal mood/affect, no motor/sensory deficits Skin Exam: Present: skin rash - Patchy erythema throughout the left leg and thigh. There is no specific lymphadenitis. Progress - Results and Orders Patient's Lab Results:: I have reviewed the patient's lab results. Results and Orders: Laboratory Tests 08/29/18 08/29/18 08/29/18 19:25 19:25 19:25 WBC 16.6 H D Hgb 11.8 L Hct 37.0 Plt Count 298 Neutrophils % 91.8 H D-Dimer Sodium 136 Potassium 3.0 L Carbon Dioxide 23.7 L BUN 18 Creatinine 0.85 Random Glucose 163 H Lactic Acid, Venous 2.4 H* Calcium 8.6 Total Bilirubin 0.9 AST 20 ALT 33 Alkaline Phosphatase 118 06/04/19 19:30 WBC Hgb Hct Plt Count Neutrophils % D-Dimer 0.70 H Sodium Potassium Carbon Dioxide BUN Creatinine Random Glucose Lactic Acid, Venous Calcium Total Bilirubin AST ALT Alkaline Phosphatase - Vital Signs Patient's Vital Signs:: I have reviewed the patient's vital signs. Vital Signs: Vital Signs 08/29/18 18:25 08/29/18 19:22 Temperature 37.4 C 37.1 C Pulse Rate 123 H 116 H Respiratory Rate 16 20 Blood Pressure 128/56 O2 Sat by Pulse Oximetry 100 99 - CT/Ultrasound CT/Ultrasound Narrative: Left lower extremity venous Doppler: No evidence of DVT. - Progress/Reassessment Chief Complaint: Lower Extremity Pain/ Injury Progress:: Improved Progress Note-Subjective: 08/30/18 00:[address] Saenz she agrees with observation admit. Departure Clinical Impression: Cellulitis Qualifiers: Site of cellulitis: extremity Site of cellulitis of extremity: lower extremity Laterality: left Qualified Code(s): L03.116 - Cellulitis of left lower limb - Departure Disposition: Still a patient Condition: Good
[2018-08-29] MEDS ORDERED: CLINDAMYCIN PHOSPHATE 600 MG in DEXTROSE 5 % IN WATER 100 ML IV ONE ×2 (20:32)
[2018-08-29] MEDS ORDERED: NORMAL SALINE 1,000 ML IV ONE (20:32)
[2018-08-29] MEDS ORDERED: KETOROLAC TROMETHAMINE 30 MG/ML VIAL IV ONE (21:20)
[2018-08-30] MEDS ORDERED: NORMAL SALINE 1,000 ML IV ONE ×3 (00:33→11:03)
[2018-08-30] MEDS: CLINDAMYCIN PHOSPHATE 600 MG in DEXTROSE 5 % IN WATER 100 ML IV SCH ×6 (02:48→17:40)
[2018-08-30] MEDS: ACETAMINOPHEN 500 MG TABLET PO PRN (05:08)
[2018-08-30] MEDS ORDERED: NORMAL SALINE 500 ML IV ONE (07:55)
[2018-08-30] MEDS ORDERED: ACETAMINOPHEN 325 MG TABLET PO PRN (10:49)
[2018-08-30] MEDS ORDERED: diphenhydrAMINE HCL 25 MG CAPSULE PO PRN (10:50)
[2018-08-30] MEDS ORDERED: EPINEPHrine 0.3 MG DISP.SYRIN IM PRN (10:51)
[2018-08-30] MEDS ORDERED: amLODIPine BESYLATE 10 MG TABLET PO SCH (11:00)
[2018-08-30] MEDS: DULoxetine HCL 30 MG CAPSULE.SA PO SCH (11:10)
[2018-08-30] MEDS: DOCUSATE SODIUM 100 MG CAPSULE PO SCH (11:11)
[2018-08-30] MEDS: LEVOTHYROXINE SODIUM 125 MCG TABLET PO SCH (11:11)
[2018-08-30] MEDS: AZITHROMYCIN 250 MG TABLET PO SCH (11:11)
[2018-08-30] MEDS: ENOXAPARIN SODIUM 40 MG/0.4 ML SYRG SC SCH (11:11)
--- NOTE | 2018-08-30 11:28 | HP ---
Chief Complaint - Chief Complaint Date of Service: 08/30/18 Time of Service: 11:09 Chief Complaint: I have pain and redness in my left leg and a sore throat History of Present Illness: 58-year-old female with past medical history of anxiety disorder, depression, hyperlipidemia, hypothyroidism, peripheral neuropathy, and morbid obesity was evaluated in the ER for worsening sore throat fever and chills over the past several days and subsequent erythema swelling and tenderness of the left lower extremity. Patient reports she started having sore throat 2 weeks ago after several of her grandchildren became ill with the same symptoms and were diagnosed with strep throat, later this past weekend she developed fever and chills and a loss of appetite. Patient became sick enough to come to our ER where she was discovered to have an elevated lactic acid and elevated white count and was told that it would be necessary for her to stay overnight in observation but patient declined, she then was prescribed oral antibiotics and was sent home. Later that day she developed pain redness, swelling and tenderness in her left lower extremity and so she returned to the ER. ER physician suspected cellulitis of the left lower extremity but due to the swelling of the involved limb and a positive d-dimer venous ultrasound was ordered to rule out DVT. Result was negative. Medical History (Updated 08/30/18 @ 00:34 by Lucius Paiz DO) Anxiety and depression Onset Date: Unknown Hyperlipidemia Onset Date: Unknown Hypothyroidism Onset Date: ~2004 Neuropathy Onset Date: Unknown Obesity Onset Date: ~2013 BMI 37.57 Osteoarthritis Onset Date: Unknown Surgical History: Surgical History (Updated 11/21/17 @ 11:21 by Denice Hercules RN) Cholecystectomy planned Onset Date: ~1997 [place], laparoscopic Colonoscopy planned [facility]: [facility] [facility] recheck 10 years De Quervain's disease (tenosynovitis) Onset Date: ~04/20/12 Surgery-right H/O echocardiogram Onset Date: ~10/29/14 Borderline concentric left ventricular hypertrophy, ER normal, wall motion normal, mild mitral regurg, A/E reversal noted , possible diastolic dysfunction, right ventricular systolic pressure is elevated at 30-35mmHg H/O excision of mass Onset Date: ~10/22/10 Dr Soliman- left foot mass - Verruca plantaris H/O knee surgery Onset Date: ~2010 rt with grafting from [facility] Dr Soliman H/O thyroidectomy Onset Date: ~1994 1 of thyroid was removed H/O tubal ligation Onset Date: ~1984 H/O vaginal hysterectomy Onset Date: ~05/07/05 [facility] Onset Date: ~08/06/10 rt knee [facility]-saul History of appendectomy Onset Date: ~1977 History of incision and drainage Onset Date: ~201103/09/2011 [facility] right breast abcess, 11/18/2011 abscess left forearm Motor nerve conduction block Onset Date: ~2009 multiple sympathetic nerve blocks to right lumbar plexes S/P arthroscopic surgery of right knee Onset Date: ~2011 with tibial tuberoplasty, 04/22/2011 medial meniscectomy Status post total knee replacement, right Onset Date: ~12/06/11 Dr Soliman Family History: Family History (Updated 11/21/17 @ 10:53 by Denice Hercules RN) Mother Hypertension Hyperlipemia Kidney stone Brother Alive and well Sister Diabetes Father , age 52 Myocardial infarction Social History: Patient Lives/Resources Home Utilized Occupation Disabled Preferred Language Slovenian Do you have any yazdanism or Yes: [facility] cultural preference? Smoking Status Current some day smoker Have you smoked in the past 12 Yes months Do you dip or chew tobacco No Abuse History No History of abuse Psych History No pertinent hx Alcohol Use none Drug Use none (Last Updated 06/12/18 @ 12:11 by Laura Saenz MD) No Social History Section defined Peds Patient Hx - Developmental: No Pertinent Hx Peds Patient Hx - Medical: No Pertinent Hx Peds Patient Hx - Cardiac/Respiratory: No Pertinent Hx Peds Patient Hx - Surgical: No Surgical History Patient History - Cancer: No Hx of Cancer Review Of Systems (GEN) - Review of Systems Generalized/Overall Review: Present: Weakness, Chills, Fever, Malaise EENTM: Present: Throat Pain, Throat Swelling Respiratory: Present: No Symptoms Reported Cardiac: Present: No Symptoms Reported Abdominal: Present: No Symptoms Reported Genitourinary: Present: No Symptoms Reported Musculoskeletal: Present: No Symptoms Reported Neurological: Present: No Symptoms Reported Skin: Present: Change in Color, Other - Erythema, edema, and marked tenderness of left lower extremity from dorsum of foot to infrapatellar region. Endocrine: Present: No Symptoms Reported Immunizations: IMMUNIZATION HX Immunizations Up to Date Yes History of Influenza Vaccine No Hx Pneumococcal Vaccination No Allergies/Adverse Reactions: Allergies Allergy/AdvReac Type Severity Reaction Status Date / Time penicillin G Allergy Severe anaphlactic Verified 08/29/18 18:29 Penicillins Allergy Severe Verified 08/29/18 18:29 sulfacetamide Allergy Severe anaphylacti Verified 08/29/18 18:29 c sulfamethoxazole Allergy Severe Verified 08/29/18 18:29 [From Bactrim DS] trimethoprim Allergy Severe Anaphylaxis Verified 08/29/18 18:29 [From Bactrim DS] chantrix Allergy Unknown RASH Uncoded 08/29/18 18:29 Home Medications: HOME MEDICATIONS epinephrine 0.3 mg/0.3 mL injection, auto-injector 0.3 mg IM ONCE PRN #2 dis.syr 11/22/17 [Last Taken Unknown] diphenhydramine 25 mg tablet 25 mg PO Q4H PRN #60 tab 03/03/18 [Last Taken Unknown] duloxetine 60 mg capsule,delayed release 60 mg PO DAILY #30 cap 04/04/18 [Last Taken Unknown] amlodipine 5 mg tablet 10 mg PO DAILY #90 tab 06/12/18 [Last Taken Unknown] levothyroxine 125 mcg tablet 125 mcg PO DAILY #30 tab 06/19/18 [Last Taken Unknown] Azithromycin 250 mg PO DAILY #4 tab 08/29/18 [Last Taken 08/29/18 11:00] Gabapentin 100 mg PO 1200 08/29/18 [Last Taken Unknown] Gabapentin 100 mg PO QAM 08/29/18 [Last Taken Unknown] Gabapentin 200 mg PO HS 08/29/18 [Last Taken Unknown] Simvastatin 20 mg PO DAILY 08/29/18 [Last Taken Unknown] Exam - Exam Vital Signs: Vital Signs - Last Taken Temp 36.4 C 08/30/18 09:46 Pulse 76 08/30/18 09:46 Resp 16 08/30/18 09:46 BP 97/56 08/30/18 09:46 Pulse Ox 99 08/30/18 09:46 Constitutional: Present: Alert, Oriented x3, Cooperative, Well developed, Well nourished, No distress ENT Exam: Present: normal ENT inspection, hearing grossly normal, pharynx normal, TMs normal Eye Exam: bilateral eye: normal inspection, PERRL, EOMI Neck: Present: non-tender, full range of motion, supple, normal inspection, trachea midline Back Exam: Present: normal inspection, no CVA tenderness, no vertebral tenderness Breasts: Present: Exam deferred Respiratory: Present: chest non-tender, lungs clear, normal breath sounds, no respiratory distress, no accessory muscle use Cardiovascular/Chest: Present: normal peripheral pulses, regular rate, rhythm, no chest tenderness, no edema, no gallop, no JVD, no murmur, no rub Peripheral Pulses: carotid (R): 3+, carotid (L): 3+, femoral (R): 3+, femoral (L): 3+, dorsalis-pedis (R): 3+, dorsalis-pedis (L): 3+ Abdomen: Present: Normal bowel sounds, soft, nontender, nondistended, no rebound tenderness, no hepatospenomegaly, no masses, obese /Rectal: Present: Exam deferred Extremity: Present: normal range of motion, leg pain, pedal edema, swelling, other - Marked erythema, tenderness, and edema of left lower extremity from dorsum of foot to infrapatellar region. Skin Exam: Present: warm/dry, no cyanosis Lymphatic: Present: no adenopathy Neurologic: Present: binder selector II-XII nml as tested, normal cerebellar test, no motor/sensory deficits, alert, normal mood/affect, oriented x 3 Appearance: Present: appropriate appearance, appropriate insight, neat, no memory impairment Eye contact: Present: cooperative, good eye contact, normal speech Thoughts: Present: normal thought pattern, no apparent hallucination Diagnostic Studies: Abnormal Lab Results 08/29/18 08/29/18 08/29/18 Range/Units 19:25 19:25 19:25 WBC 16.6 H D (4.0-10.5) K/mm3 Hgb 11.8 L (12.5-16.0) gm/dL MCH 26.3 L (27-31) pg MCHC 31.9 L (32-36) g/dl RDW 15.1 H (11.5-14.0) % Immature Gran % (Auto) 0.70 H (0.001-0.429) % Immature Gran # (Auto) 0.12 H (0.000-0.0310) K/mm3 Neutrophils % 91.8 H (42-75.0) % Lymphocytes % 6.0 L (20-51) % Neutrophils # 15.2 H (1.3-6.0) K/mm3 Lymphocytes # 1.00 L (1.5-3.5) k/mm3 D-Dimer (0.19-0.49) ug/mL Potassium 3.0 L (3.4-4.6) mmol/L Carbon Dioxide 23.7 L (24-32.6) mmol/L Anion Gap 14.3 H (6.8-13.8) mmol/L Random Glucose 163 H (70-110) mg/dL Lactic Acid, Venous 2.4 H* (0.4-2.0) mmol/L Albumin 2.6 L (3.4-5.0) gm/dl 08/29/18 Range/Units 19:30 WBC (4.0-10.5) K/mm3 Hgb (12.5-16.0) gm/dL MCH (27-31) pg MCHC (32-36) g/dl RDW (11.5-14.0) % Immature Gran % (Auto) (0.001-0.429) % Immature Gran # (Auto) (0.000-0.0310) K/mm3 Neutrophils % (42-75.0) % Lymphocytes % (20-51) % Neutrophils # (1.3-6.0) K/mm3 Lymphocytes # (1.5-3.5) k/mm3 D-Dimer 0.70 H (0.19-0.49) ug/mL Potassium (3.4-4.6) mmol/L Carbon Dioxide (24-32.6) mmol/L Anion Gap (6.8-13.8) mmol/L Random Glucose (70-110) mg/dL Lactic Acid, Venous (0.4-2.0) mmol/L Albumin (3.4-5.0) gm/dl Laboratory Results WBC 16.6 K/mm3 (4.0-10.5) H D 08/29/18 19:25 RBC 4.48 M/mm3 (4.2-5.4) 08/29/18 19:25 Hgb 11.8 gm/dL (12.5-16.0) L 08/29/18 19:25 Hct 37.0 % (37.0-47.0) 08/29/18 19:25 MCV 82.6 fl (78-100) 08/29/18 19:25 MCH 26.3 pg (27-31) L 08/29/18 19:25 MCHC 31.9 g/dl (32-36) L 08/29/18 19:25 RDW 15.1 % (11.5-14.0) H 08/29/18 19:25 Plt Count 298 K/mm3 (150-450) 08/29/18 19:25 MPV 8.9 fl (8-12.5) 08/29/18 19:25 Immature Gran % (Auto) 0.70 % (0.001-0.429) H 08/29/18 19: Immature Gran # (Auto) 0.12 K/mm3 (0.000-0.0310) H 08/29/18 19:25 91.8 % (42-75.0) H 08/29/18 19:25 6.0 % (20-51) L 08/29/18 19:25 1.3 % (0.0-9) 08/29/18 19:25 0.1 % (0.0-3.0) 08/29/18 19:25 0.1 % (0.0-1.0) 08/29/18 19: Nucleated RBC % 0.0 k/mm3 (0-1) 08/29/18 19:25 15.2 K/mm3 (1.3-6.0) H 08/29/18 19:25 1.00 k/mm3 (1.5-3.5) L 08/29/18 19:25 0.2 k/mm3 (0.0-1.0) 08/29/18 19:25 0.0 k/mm3 (0.0-0.7) 08/29/18 19: Absolute Basophils 0.0 k/mm3 (0.0-0.1) 08/29/18 19:25 0.70 ug/mL (0.19-0.49) H 08/29/18 19:30 Sodium 136 mmol/L (132-142) 08/29/18 19:25 137 mmol/L (130-142) 08/29/18 19:25 Potassium 3.0 mmol/L (3.4-4.6) L 08/29/18 19:25 Chloride 101 mmol/L (97-106) 08/29/18 19:25 Carbon Dioxide 23.7 mmol/L (24-32.6) L 08/29/18 19:25 14.3 mmol/L (6.8-13.8) H 08/29/18 19:25 BUN 18 mg/dL (3-23) 08/29/18 19:25 0.85 mg/dL (0.4-1.4) 08/29/18 19:25 Est GFR (Non-Af Amer) 73 mL/min (60-130) 08/29/18 19:25 21.2 (9.0-21.6) 08/29/18 19:25 163 mg/dL (70-110) H 08/29/18 19:25 1.0 mmol/L (0.4-2.0) 08/29/18 23:43 Calcium 8.6 mg/dL (7.9-10.9) 08/29/18 19:25 Calcium Adj for Albumin 9.4 mg/dL (8.4-10.2) 08/29/18 19:25 0.9 mg/dL (0.0-1.1) 08/29/18 19:25 AST 20 U/L (0-48) 08/29/18 19:25 ALT 33 U/L (19-67) 08/29/18 19:25 118 U/L (50-170) 08/29/18 19:25 6.5 gm/dL (6.2-8.2) 08/29/18 19:25 2.6 gm/dl (3.4-5.0) L 08/29/18 19:25 Assessment/Plan - Narrative Narrative: Patient was evaluated and medical chart was reviewed and decision to admit to inpatient with a diagnosis of cellulitis of the left lower extremity and Streptococcus pharyngitis was taken. Patient will be treated with IV antibiotics and IV hydration and will be monitored closely for resolution of her cellulitis. In the meantime she has been reported of having hypotension therefore fluid bolus was ordered antihypertensives were placed on hold. Other routine medications will be resumed administered during her hospitalization. Follow-up labs will be ordered for tomorrow morning. - Assessment/Plan (1) Cellulitis of left lower extremity Problem: Acute (2) Cellulitis Problem: Acute Qualifiers: Site of cellulitis: extremity Site of cellulitis of extremity: lower extremity Laterality: left Qualified Code(s): L03.116 - Cellulitis of left lower limb (3) Strep pharyngitis Problem: Acute
[2018-08-30] MEDS ORDERED: GABAPENTIN 100 MG CAPSULE PO SCH ×2 (12:00→21:00)
[2018-08-30] MEDS: POTASSIUM CHLORIDE IN WATER 100 ML IV SCH ×4 (13:35→17:56)
[2018-08-30] MEDS ORDERED: LOPERAMIDE HCL 2 MG CAPSULE PO SCH (21:00)
[2018-08-30] MEDS ORDERED: SIMVASTATIN 20 MG TABLET PO SCH (21:00)
[2018-08-30] MEDS: FAMOTIDINE 20 MG TABLET PO SCH (21:22)
[2018-08-30] MEDS: LACTOBACILLUS ACIDOPHILUS 1 EACH CAPSULE PO SCH (21:22)
[2018-08-31] MEDS: CLINDAMYCIN PHOSPHATE 600 MG in DEXTROSE 5 % IN WATER 100 ML IV SCH ×4 (01:16→08:58)
[2018-08-31] MEDS: ACETAMINOPHEN 500 MG TABLET PO PRN (01:22)
[2018-08-31 06:00] LABS: Hematocrit 29.8 % (37.0-47.0); Hemoglobin 9.4 gm/dL (12.5-16.0); Mean Cell Volume 83.2 fl (78-100); Mean Corpuscular Hemoglobin 26.3 pg (27-31); Mean Corpuscular Hgb Conc 31.5 g/dl (32-36); Mean Platelet Volume 9.9 fl (8-12.5); Neutrophil # 6.2 K/mm3 (1.3-6.0); Neutrophil % 77.5 % (42-75.0); Platelet Count 237 K/mm3 (150-450); Red Blood Count 3.58 M/mm3 (4.2-5.4); Red Cell Distribution Width 15.4 % (11.5-14.0)
[2018-08-31 06:24] LABS: Anion Gap 12.6 mmol/L (6.8-13.8); BUN/Creatinine Ratio 18.9 (9.0-21.6); Bilirubin, Total 0.3 mg/dL (0.0-1.1); Ca. Corrected For Albumin 9.5 mg/dL (8.4-10.2); Calcium * 8.2 mg/dL (7.9-10.9); Carbon Dioxide 23.8 mmol/L (24-32.6); Potassium 3.4 mmol/L (3.4-4.6); Total Protein 5.3 gm/dL (6.2-8.2)
[2018-08-31] MEDS: LEVOTHYROXINE SODIUM 125 MCG TABLET PO SCH (06:39)
[2018-08-31] MEDS: DOCUSATE SODIUM 100 MG CAPSULE PO SCH (08:26)
[2018-08-31] MEDS: LACTOBACILLUS ACIDOPHILUS 1 EACH CAPSULE PO SCH (08:26)
[2018-08-31] MEDS: DULoxetine HCL 30 MG CAPSULE.SA PO SCH (08:26)
[2018-08-31] MEDS: AZITHROMYCIN 250 MG TABLET PO SCH (08:27)
[2018-08-31] MEDS: FAMOTIDINE 20 MG TABLET PO SCH (08:27)
[2018-08-31] MEDS ORDERED: GABAPENTIN 100 MG CAPSULE PO SCH (09:00)
--- NOTE | 2018-08-31 09:52 | DS ---
(1) Cellulitis of left lower extremity Problem: Acute (2) Cellulitis Problem: Acute Qualifiers: Site of cellulitis: extremity Site of cellulitis of extremity: lower extremity Laterality: left Qualified Code(s): L03.116 - Cellulitis of left lower limb (3) Strep pharyngitis Problem: Resolved (4) Moderate dehydration Problem: Resolved Description of Stay: 58-year-old female admitted for left lower extremity cellulitis, moderate dehydration, and strep pharyngitis was evaluated at bedside was found to be afebrile and in no acute distress. Patient reports feeling much better compared to when she arrived, there has not been recurrence of fever and she says she feels stronger. Patient maintains stable vitals, follow-up labs this morning demonstrated resolution of her leukocytosis and her hypokalemia after replacement. Patient still has erythema of the left lower extremity but it is improving per the initial markings in her legs, the redness is receding in the extremities less tender than yesterday. Given these findings decision to discharge patient home with additional days of p.o. antibiotics and instructions to follow-up with her PCP was taken. Patient agreed with going home and she agreed to follow-up with her PCP. Procedures Performed: none Results and Findings: Lab Pending Results 08/29/18 19:25: WBC 16.6 H D, RBC 4.48, Hgb 11.8 L, Hct 37.0, MCV 82.6, MCH 26.3 L, MCHC 31.9 L, RDW 15.1 H, Plt Count 298, MPV 8.9, Immature Gran % (Auto) 0.70 H, Immature Gran # (Auto) 0.12 H, Neutrophils % 91.8 H, Lymphocytes % 6.0 L, Monocytes % 1.3, Eosinophils % 0.1, Basophils % 0.1, Nucleated RBC % 0.0, Neutrophils # 15.2 H, Lymphocytes # 1.00 L, Monocytes # 0.2, Eosinophils # 0.0, Absolute Basophils 0.0 08/29/18 19:25: Sodium 136, Plasma Sodium 137, Potassium 3.0 L, Chloride 101, Carbon Dioxide 23.7 L, Anion Gap 14.3 H, BUN 18, Creatinine 0.85, Est GFR (Non- Af Amer) 73, BUN/Creatinine Ratio 21.2, Random Glucose 163 H, Calcium 8.6, Calcium Adj for Albumin 9.4, Total Bilirubin 0.9, AST 20, ALT 33, Alkaline Phosphatase 118, Total Protein 6.5, Albumin 2.6 L 08/29/18 19:25: Lactic Acid, Venous 2.4 H* 08/29/18 19:30: D-Dimer 0.70 H 08/29/18 23:43: Lactic Acid, Venous 1.0 08/30/18 19:22: Stl C.difficile Tox A&B Negative 08/31/18 05:50: WBC 8.0 D, RBC 3.58 L, Hgb 9.4 L, Hct 29.8 L, MCV 83.2, MCH 26.3 L, MCHC 31.5 L, RDW 15.4 H, Plt Count 237, MPV 9.9, Immature Gran % (Auto) 1.00 H, Immature Gran # (Auto) 0.08 H, Neutrophils % 77.5 H, Lymphocytes % 15.1 L, Monocytes % 5.1, Eosinophils % 1.2, Basophils % 0.1, Nucleated RBC % 0.0, Neutrophils # 6.2 H, Lymphocytes # 1.21 L, Monocytes # 0.4, Eosinophils # 0.1, Absolute Basophils 0.0 08/31/18 05:50: Sodium 141, Plasma Sodium 141, Potassium 3.4, Chloride 108 H, Carbon Dioxide 23.8 L, Anion Gap 12.6, BUN 14, Creatinine 0.74, Est GFR (Non-Af Amer) 86, BUN/Creatinine Ratio 18.9, Random Glucose 112 H D, Calcium 8.2, Calcium Adj for Albumin 9.5, Total Bilirubin 0.3, AST 19, ALT 32, Alkaline Phosphatase 115, Total Protein 5.3 L, Albumin 2.0 L Discharge Location: Home Disposition: Home self-care Condition: Good Face to Face Encounter completed per [facility] Guidelines: No Discharge Activity: Activity as tolerated Discharge Diet: Low fat/chol Referrals: Laura Saenz MD [Primary Care Provider] - Prescriptions (Any new or edited meds): Clindamycin HCl [Cleocin HCl] 300 mg PO Q8H 7 Days #21 cap Complete Home Medications List: Complete Home Medication List: epinephrine 0.3 mg/0.3 mL injection, auto-injector 0.3 mg IM ONCE PRN #2 dis.syr 11/22/17 diphenhydramine 25 mg tablet 25 mg PO Q4H PRN #60 tab 03/03/18 duloxetine 60 mg capsule,delayed release 60 mg PO DAILY #30 cap 04/04/18 amlodipine 5 mg tablet 10 mg PO DAILY #90 tab 06/12/18 levothyroxine 125 mcg tablet 125 mcg PO DAILY #30 tab 06/19/18 Azithromycin 250 mg PO DAILY #4 tab 08/29/18 Gabapentin 100 mg PO 1200 08/29/18 Gabapentin 100 mg PO QAM 08/29/18 Gabapentin 200 mg PO HS 08/29/18 Simvastatin 20 mg PO DAILY 08/29/18 Clindamycin HCl [Cleocin HCl] 300 mg PO Q8H 7 Days #21 cap 08/31/18
[2018-08-31] MEDS: ENOXAPARIN SODIUM 40 MG/0.4 ML SYRG SC SCH (10:26)
[2018-08-31 12:26] VITALS: BP 121/63
== END 2018-08-31 12:40 | disposition home or self-care (01) ==
LOC: ER 18:12 → MS 18:12
PROVIDERS: ADMIT Family Medicine; ATTEND Family Medicine
CPT/HCPCS: 36415; 80053; 83605; 85025; 85379; 87493; 93971; 96361; 96365; 96366; 96367; 96372; 96375; 99285; G0378